=== PATIENT | female | born 1985 | race Caucasian/White ===

== ENCOUNTER → 2020-06-09 15:31 | Outpatient (BNVA) | payer OTHER, SELFPAY | PROVIDERS: Family Provider Internal Medicine; PCP Internal Medicine; Visit Provider Nurse Practitioner Family | DX: Z20.828 Contact with and (suspected) exposure to other viral communicable diseases (principal); J06.9 Acute upper respiratory infection, unspecified | CPT/HCPCS: 87635 ==

== ENCOUNTER 2020-08-03 14:38 | Emergency (ER) | payer SELFPAY ==
[2020-08-03 15:25] VITALS: BP 115/73; PULSE 97; RESP 14; TEMP 36.8; O2SAT 100; BMI 24.7
--- NOTE | 2020-08-03 16:36 | XRR_ITS ---
PROCEDURE INFORMATION: Exam: XR Chest, 1 View Exam date and time: 08/03/2020 4:38 PM Age: 34 years old Clinical indication: Shortness of breath; Additional info: SOB TECHNIQUE: Imaging protocol: XR of the chest Views: 1 view. Total images: 1 COMPARISON: CR Chest 2 views* [id number] 01/31/2018 3:11 PM FINDINGS: Lungs: Unremarkable. No consolidation. Pleural space: Unremarkable. No pleural effusion. No pneumothorax. Heart/Mediastinum: Unremarkable. No cardiomegaly. Bones/joints: Mild scoliotic curvature of the spine. XR/XR chest 1V portable [id number] IMPRESSION: Nonacute.
--- NOTE | 2020-08-03 16:50 | W.ED.SOB ---
Documented by User: JACKIE Davis 08/05/20 09:23 HPI - SOB/Dyspnea General: Chief Complaint: Shortness of Breath/Dyspnea Stated Complaint: SOB/ Weakness/fatigue Time Seen by Provider: 08/03/20 16:32 History of Present Illness: HPI Narrative: Patient is a 34-year-old female comes to the ED with cough and shortness of breath. Patient says she has been having the symptoms for over a month. She has been to the urgent care twice now and has been put on antibiotics and steroid. She says her cough has not went away and it gets worse at night when she lays down and that is also when she starts feeling short of breath. Currently here in the ED she is not really having any symptoms. Denies any nasal congestion or drainage,sore throat, fever, chills, nausea/vomiting, chest pain, abdominal pain, bladder or bowel symptoms. Associated symptoms: Deny abdominal pain, chest pain, fever(s), nausea, orthopnea, palpitations or vomiting Review of Systems Const: Denies: fever(s), chills or fatigue Eyes: Denies: change in vision or eye discomfort ENMT: Denies: throat pain, odynophagia, nasal discharge or nasal congestion Card: Denies: chest pain, palpitations, edema, swelling of feet/ankles, dyspnea on exertion or orthopnea Resp: Reports: dyspnea and non-productive cough; Denies: productive cough GI: Denies: abdominal pain, nausea, vomiting, diarrhea, constipation or hematochezia : Denies: flank pain, dysuria or hematuria Musc: Denies: neck pain, back pain or extremity swelling Skin/Breast: Denies: rash or new lesions Neuro: Denies: headache(s), numbness in extremities or weakness in extremities PFS ED PFSH: Family History Other Cancer Diabetes Heart disease Social History Smoking and tobacco status: current every day smoker Alcohol intake: current Alcohol intake frequency: holidays/special occasions only Adopted: No Marital status: Single Number of children: 2 service: No History of recent travel: No Physical Exam Const: COMMON NORMALS: no acute distress, patient oriented x3 and alert HENMT: COMMON NORMALS: normocephalic HEAD & SCALP: normocephalic MOUTH: Normal oral and palatal mucosa present THROAT: posterior oropharynx normal and uvula midline Neck/C-Spine: COMMON NORMALS: supple GENERAL: Yes normal visual inspection Resp: COMMON NORMALS: normal respiratory effort, No retractions, No use of accessory muscles and clear to auscultation bilaterally EFFORT & INSPECTION: Yes able to speak in complete sentences, No tachypneic, No respiratory distress and No labored AUSCULTATION: clear to auscultation bilaterally Cardio: COMMON NORMALS: regular rate, regular rhythm, S1 normal heart sound present, S2 normal heart sound present, No gallops present (Cardio), No clicks present (Cardio), No murmurs present (Cardio) and Peripheral pulses 2+ throughout RATE: regular rate RHYTHM: regular rhythm HEART SOUNDS: S1 normal heart sound present and S2 normal heart sound present PERIPHERAL PULSES: Peripheral pulses 2+ throughout GI: COMMON NORMALS: Normal to inspection, nondistended, normoactive bowel sounds present, Soft to palpation, non-tender and no masses PALPATION: Yes Soft to palpation : COMMON NORMALS: Yes no CVA tenderness BLADDER/KIDNEY EXAM: Yes no CVA tenderness Back/Pelvis: COMMON NORMALS: no CVA tenderness Extremity: COMMON NORMALS: normal to inspection Neuro: COMMON NORMALS: patient oriented x3 and moves all extremities SENSORIUM/ORIENTATION: Yes alert Skin: GENERAL SKIN EXAM: dry skin Course Vital Signs: Vital signs: Vital Signs Temperature 98.2 F 08/03/20 15:25 Pulse Rate 72 08/03/20 18:16 Respiratory Rate 18 08/03/20 18:16 Blood Pressure 112/78 08/03/20 18:16 Pulse Oximetry 98 08/03/20 18:16 Discharge Plan Discharge Patient Disposition: Home Clinical Impression: Suspected 2019 novel coronavirus infection Acute bronchitis Qualifiers: Bronchitis organism: unspecified organism Qualified Code(s): J20.9 - Acute bronchitis, unspecified Condition: Stable Prescriptions: New Decadron 6 mg tablet 6 mg PO DAILY Qty: 10 RF: 0 Ventolin HFA 90 mcg/actuation HFA aerosol inhaler 2 puff INHALATION Q4H PRN (Reason: shortness of breath or wheezing) Qty: 18 RF: 0 benzonatate 200 mg capsule 200 mg PO TID PRN (Reason: cough) Qty: 20 RF: 0 cefdinir 300 mg capsule 300 mg PO BID 10 Days Qty: 20 RF: 0 (DME) POCKET CHAMBER Spacer See Rx Instructions .ROUTE .MEDSUPPLY Qty: 1 RF: 0 Discontinued azithromycin 250 mg tablet See Rx Instructions PO .COMPLEX Qty: 6 RF: 0 prednisone 20 mg tablet 40 mg PO DAILY Qty: 10 RF: 0 No Action Mirena 20 mcg/24 hours (5 yrs) 52 mg intrauterine device INTRAUTERI RF: 0 desvenlafaxine 50 mg tablet extended release 24 hr 50 mg PO DAILY Qty: 30 RF: 5 Discharge Orders: Discharge ED (Routine); Ordered 08/03/20 Ordered By: Katherin Zaidi Referrals: Fred Rangel MD [Primary Care Provider] - Discharge Diet: Usual diet Discharge Activity: Limit activity as instructed Patient Instructions: Acute Bronchitis (ED), How to Use a Metered-Dose Inhaler with a Spacer (ED) Activity Restrictions/Additional Instructions: Covid swab results will be called to you in the next 24 to 48 hours; remain in quarantine, push fluids, may take Tylenol/ibuprofen as needed for pain. Take cefdinir until all gone, even if feeling better, return to the emergency department if you develop inability to catch her breath, difficulty breathing or other concerning symptoms If Covid results are positive; [facility] will contact you with further instructions. Take dexamethasone in the morning with food to avoid stomach upset. Sign Out Sign Out Data: Patient Sign Out occurred on 08/03/20 at 17:24. Patient's care was discussed, and care was transferred from to ZACH Benedict. Post-Handoff Eval: 34-year-old female patient presents to the emergency department with 1 to 2-week history of cough congestion. She reports cough improved with azithromycin and prednisone. When antibiotics were completed, return of symptoms worsen. Lungs are clear upon exam. She was provided prescription of dexamethasone, cefdinir, albuterol and benzonatate. Advised to take ibuprofen and Tylenol as needed for discomfort from the cough. Advised need for follow-up with her primary care provider as further studies may be needed such as pulmonary function test, chest x-ray revealed no acute abnormalities today. Oxygen saturation 100% on room air; she is not tachycardic, PE not likely, she denies chest pain with symptoms. Coding Level of Care Code ED Grounds Maintenance Manager for Chg Fwd Exam Comprehensive Documented by User: ZACH Benedict 08/03/20 21:07 HPI - SOB/Dyspnea General: Chief Complaint: Shortness of Breath/Dyspnea Stated Complaint: SOB/ Weakness/fatigue Time Seen by Provider: 08/03/20 16:32 PFSH ED PFSH: Family History Other Cancer Diabetes Heart disease Social History Smoking and tobacco status: current every day smoker Alcohol intake: current Alcohol intake frequency: holidays/special occasions only Adopted: No Marital status: Single Number of children: 2 service: No History of recent travel: No Course Vital Signs: Vital signs: Vital Signs Temperature 98.2 F 08/03/20 15:25 Pulse Rate 72 08/03/20 18:16 Respiratory Rate 18 08/03/20 18:16 Blood Pressure 112/78 08/03/20 18:16 Pulse Oximetry 98 08/03/20 18:16 MDM - SOB/Dyspnea Imaging Data^: CXR: Radiologist's impression: [address] [address] XRay Report Signed Patient: Mena Bowman Unit #: [id number] : 1985 Age/Sex: 34 / F ADM Date: 08/03/20 Loc: ER Room/Bed: Attending Dr: Ordering Provider/Ordering MD: Tapan Burden Date of Service: 08/03/20 Procedure(s): XR chest 1V portable [id number] Accession Number(s): [id number] Report Number: [id number] PROCEDURE INFORMATION: Exam: XR Chest, 1 View Exam date and time: 08/03/2020 4:38 PM Age: 34 years old Clinical indication: Shortness of breath; Additional info: SOB TECHNIQUE: Imaging protocol: XR of the chest Views: 1 view. Total images: 1 COMPARISON: CR Chest 2 views* [id number] 01/31/2018 3:11 PM FINDINGS: Lungs: Unremarkable. No consolidation. Pleural space: Unremarkable. No pleural effusion. No pneumothorax. Heart/Mediastinum: Unremarkable. No cardiomegaly. Bones/joints: Mild scoliotic curvature of the spine. XR/XR chest 1V portable [id number] IMPRESSION: Nonacute. Dictated By: Maciel Padilla Signed By: Maciel Padilla Signed Date/Time: 08/03/201735 DD/ 34 Discharge Plan Discharge Patient Disposition: Home Clinical Impression: Suspected 2019 novel coronavirus infection Acute bronchitis Qualifiers: Bronchitis organism: unspecified organism Qualified Code(s): J20.9 - Acute bronchitis, unspecified Condition: Stable Prescriptions: New Decadron 6 mg tablet 6 mg PO DAILY Qty: 10 RF: 0 Ventolin HFA 90 mcg/actuation HFA aerosol inhaler 2 puff INHALATION Q4H PRN (Reason: shortness of breath or wheezing) Qty: 18 RF: 0 benzonatate 200 mg capsule 200 mg PO TID PRN (Reason: cough) Qty: 20 RF: 0 cefdinir 300 mg capsule 300 mg PO BID 10 Days Qty: 20 RF: 0 (DME) POCKET CHAMBER Spacer See Rx Instructions .ROUTE .MEDSUPPLY Qty: 1 RF: 0 Discontinued azithromycin 250 mg tablet See Rx Instructions PO .COMPLEX Qty: 6 RF: 0 prednisone 20 mg tablet 40 mg PO DAILY Qty: 10 RF: 0 No Action Mirena 20 mcg/24 hours (5 yrs) 52 mg intrauterine device INTRAUTERI RF: 0 desvenlafaxine 50 mg tablet extended release 24 hr 50 mg PO DAILY Qty: 30 RF: 5 Discharge Orders: Discharge ED (Routine); Ordered 08/03/20 Ordered By: Katherin Zaidi Referrals: Fred Rangel MD [Primary Care Provider] - Discharge Diet: Usual diet Discharge Activity: Limit activity as instructed Patient Instructions: Acute Bronchitis (ED), How to Use a Metered-Dose Inhaler with a Spacer (ED) Activity Restrictions/Additional Instructions: Covid swab results will be called to you in the next 24 to 48 hours; remain in quarantine, push fluids, may take Tylenol/ibuprofen as needed for pain. Take cefdinir until all gone, even if feeling better, return to the emergency department if you develop inability to catch her breath, difficulty breathing or other concerning symptoms If Covid results are positive; [facility] department will contact you with further instructions. Take dexamethasone in the morning with food to avoid stomach upset. Sign Out Sign Out Data: Patient Sign Out occurred on 08/03/20 at 17:24. Patient's care was discussed, and care was transferred from to ZACH Benedict. Post-Handoff Eval: 34-year-old female patient presents to the emergency department with 1 to 2-week history of cough congestion. She reports cough improved with azithromycin and prednisone. When antibiotics were completed, return of symptoms worsen. Lungs are clear upon exam. She was provided prescription of dexamethasone, cefdinir, albuterol and benzonatate. Advised to take ibuprofen and Tylenol as needed for discomfort from the cough. Advised need for follow-up with her primary care provider as further studies may be needed such as pulmonary function test, chest x-ray revealed no acute abnormalities today. Oxygen saturation 100% on room air; she is not tachycardic, PE not likely, she denies chest pain with symptoms. Coding Level of Care Code ED Grounds Maintenance Manager for Pranav Turcios Exam Comprehensive
[2020-08-03 18:16] VITALS: BP 112/78; PULSE 72; RESP 18; O2SAT 98
== END 2020-08-03 18:17 | disposition home or self-care (01) ==
PROVIDERS: Emergency Provider Nurse Practitioner Family; PCP Internal Medicine
DX: J20.9 Acute bronchitis, unspecified (principal); Z20.828 Contact with and (suspected) exposure to other viral communicable diseases; F17.210 Nicotine dependence, cigarettes, uncomplicated
CPT/HCPCS: 12345; 71045; 87635; 99281; 99282

== ENCOUNTER 2020-11-30 12:30 | Observation (INO) | payer SELFPAY ==
[2020-11-30 12:31] VITALS: BP 111/77; PULSE 72; RESP 15; O2SAT 100; BMI 23.9
[2020-11-30] MEDS: diazePAM 5 mg Tablet 10 MG PO (13:08)
[2020-11-30] MEDS: dexamethasone 10 mg/mL INJ IVP (13:13)
--- NOTE | 2020-11-30 13:15 | ED_ITS ---
HPI - Back Pain/Injury General: Chief Complaint: Back Pain/Injury Stated Complaint: BACK PAIN Time Seen by Provider: 11/30/20 12:33 History of Present Illness: HPI Narrative: 35-year-old female who has been building some heavy tables for the past couple of weeks who is noticed a little bit of low back pain progressively getting worse over the past 2 weeks she has been able to tolerate it with just some [id number] medications however the past couple of days she has noticed an increase in her lower back pain. It was to the point that last night the pain was so severe she did not want to get out of bed to urinate so held her urine throughout the night. Today she tried to get up and shower she bent over to pull up her pants she felt a pop in her back and it dropped her to her knees when she was unable to get herself up. Patient laid there for over an hour and called her mother for help she did have to urinate and asked her mother to put a towel and/or trash bag underneath her so she could just basically wet herself however when she went to try to urinate she physically could not urinate or push it out and that it was very difficult for her to even tried to urinate. He has pain in her left hip and buttock that was there prior to her dropping to her knees and she does not feel it is traumatic from today's events. She feels like her lower extremity especially in the left is a little more altered sensation but denies any true numbness or tingling she denies any saddle paresthesias she denies any bowel changes but she has not had a bowel movement today but it has been harder to defecate She has no previous back problems or injuries Review of Systems Narrative: General: denies fatigue, fever or chills HEENT: denies ear pain, denies nasal congestion, denies vision changes, denies sore throat Neck: denies masses or pain Resp: denies cough, denies shortness of breath, denies pleuritic pain Cardio: denies chest pain, denies edema GI: denies abdominal pain, denies N/V/D, denies black/tarry or bloody stools : denies hematuria, denies dysuria Neuro: denies headache, denies dizziness, denies motor or sensory changes, changes in bladder habits and more difficult Musculoskeletal: + low back pain, left lower back and hip pain Skin: denies rashes Psych: denies SI or HI Endocrine: denies thyroid symptoms, denies lymphadenopathy all over ROS reviewed and patient denies PFSH ED PFSH: Family History Other Cancer Diabetes Heart disease Social History Smoking and tobacco status: current every day smoker Alcohol intake: current Alcohol intake frequency: holidays/special occasions only Adopted: No Marital status: Single Number of children: 2 service: No History of recent travel: No Physical Exam Narrative: EXAM NARRATIVE: General: a/o/3, no distress Head: atraumatic HEENT: normal eyes, normal conjunctiva, normal hearing, normal external nose, normal mouth, mucous membranes moist Neck: FROM, trachea midline Chest: normal expansion, no gross deformities Resp: normal speech, no retractions, no accessory muscle use, CTA bilaterally Cardio: regular rate and rhythm and no murmur, no peripheral edema, normal peripheral pulses GI: soft, flat non tender, no guarding normal BS : deferred Musculoskeletal: Lower midline back pain, difficulty rolling causes severe pain, no pain or gross deformities, negative straight leg raising, babinkski neg. hallux normal bilaterally, sensation intact b/l LE Neuro: a/o appropriate for age, no gross motor or sensory deficits, CN II-XII grossly intact, normal coordination, normal speech Skin: no rashes Psych: cooperative, normal mood and effect Course Vital Signs: Vital signs: Vital Signs Pulse Rate 72 11/30/20 12:31 Respiratory Rate 15 11/30/20 12:31 Blood Pressure 111/77 11/30/20 12:31 Pulse Oximetry 100 11/30/20 12:31 MDM - Back Pain/Injury MDM Narrative: Medical decision making narrative: Patient has not had previous back pains this has been an acute onset over the past 1 to 2 weeks with severe issues today that when she bent over she felt a pop and she could not even get her pants up and now she is having urinary incontinence and difficulty urinating to the point the patient even requested a catheter prior to her going to MRI because she does not feel that she can physically strain to get it to come out patient cannot sit up she cannot rollover this is an acute process with urinary changes I feel an MRI is warranted to rule out neurological changes cauda equina. MRI shows a L4-L5 disc protrusion. Mother is present discussed the findings with Dr. Ya who is on for spinal surgery he reviewed the images we are going to put her on some prednisone a tapering dose and pain medication he said he could see her in the office on Tuesday they can discuss a plan he does not feel she needs emergency surgery at this time and that hopefully she can improve with any type of injections or physical therapy. Lab Data: Labs: Lab Results 11/30/20 11/30/20 Range/Units 12:06 12:06 WBC 5.8 (4.0-10.0) 10^3/ uL RBC 4.50 (4.1-5.3) 10^6/u L Hgb 13.3 (11.5-15.3) g/dL Hct 39.7 (37.0-47.0) % MCV 88.2 (81-99) fL MCH 29.6 (28.0-34.0) pg MCHC 33.5 (30.0-36.0) g/dL RDW 11.6 L (12.1-15.1) % Plt Count 156 (130-400) 10^3/c mm MPV 12.1 H (7.4-10.4) fL Neut % (Auto) 65.0 % Lymph % (Auto) 26.8 % [place] % (Auto) 4.3 % Eos % (Auto) 2.8 % Baso % (Auto) 0.9 % Neut # (Auto) 3.77 (1.8-7.7) 10^3/u L Lymph # (Auto) 1.6 (0.8-4.8) 10^3/u L [place] # (Auto) 0.3 (0.2-0.9) 10^3/u L Eos # (Auto) 0.2 (0.0-0.8) 10^3/u L Baso # (Auto) 0.1 (0.0-0.1) 10^3/u L Nucleated RBC % (a uto) 0 % Nucleated RBCs # 0.0 /100WBC Sodium 140 (136-145) mmol/L Potassium 3.5 (3.5-5.1) mmol/L Chloride 106 (98-107) mmol/L Carbon Dioxide 24 (22-29) mmol/L Anion Gap 13.5 (5-19) BUN 10 (6-20) mg/dL Creatinine 0.5 (0.5-0.9) mg/dL GFR Calculation 140.4 H (90-130) mL/min Glucose 91 (65-115) mg/dL Calculated Osmolal ity 289 (285-295) mOsm/k g Calcium 9.0 (8.5-10.5) mg/dL Total Bilirubin 0.4 (0.15-1.2) mg/dL AST 12 (0-32) U/L ALT 7 (0-33) U/L Alkaline Phosphata se 45 (35-105) IU/L Total Protein 7.6 (6.6-8.7) g/dL Albumin 4.8 (3.5-5.2) g/dL Globulin 2.8 (1.3-4.6) g/dL Discharge Plan Discharge Condition: Stable Prescriptions: New prednisone 20 mg tablet 20 mg PO DAILY Qty: 15 RF: 0 hydrocodone-acetaminophen 7.5-325 mg tablet 1 tab PO Q6H PRN (Reason: pain) Qty: 20 RF: 0 tizanidine [Zanaflex] 4 mg capsule 4 mg PO TID PRN (Reason: muscle spasticity) Qty: 15 RF: 0 No Action Mirena 20 mcg/24 hours (5 yrs) 52 mg intrauterine device See Rx Instructions .ROUTE .COMPLEX RF: 0 albuterol sulfate [Ventolin HFA] 90 mcg/actuation HFA aerosol inhaler 2 puff INHALATION Q4H PRN (Reason: shortness of breath or wheezing) Qty: 18 RF: 0 (DME) POCKET CHAMBER Spacer See Rx Instructions .ROUTE .MEDSUPPLY Qty: 1 RF: 0 Ultram 50 mg Tablet 100 mg PO PRN RF: 0 Aleve 220 mg Tablet 440 mg PO PRN RF: 0 desvenlafaxine 50 mg tablet extended release 24 hr 50 mg PO QAM RF: 0 Discharge Orders: Discharge ED (Routine); Ordered 11/30/20 Ordered By: Suki Avila Referrals: Ariel Ya DO [Physician] - (bulging disc, seen in ER. ) Fred Rangel MD [Primary Care Provider] - Discharge Diet: Usual diet Discharge Activity: Increase activity as tolerated Patient Instructions: Lumbar Disc Herniation (ED), Lumbar Radiculopathy (ED) Activity Restrictions/Additional Instructions: Activity as tolerated you may need help or assistance and can try a walker if that helps to get around a little bit better. Make sure you are urinating regularly return if you have numbness or tingling between your legs or if you have worsening of symptoms or numbness down your leg. You need to call Dr. Ya on Tuesday tell them we spoke to mother the emergency department and he would like to see you in the office on Tuesday You may really try ibuprofen and/or Aleve for the inflammation and only use the pain medication when severely needed or the muscle relaxers. Thank you for choosing [facility] for your healthcare needs today. Please realize this is an emergency room and that we are providing you with a medical screening exam and this may not be complete and all inclusive of all the testing and or work up that you may need to determine your ailment or severity of your illness. It is very important that you follow up as instructed or that you return to the Emergency Department should you have concerns or if your condition changes or worsens in any way. Coding Level of Care Code ED Logger All Round for Pranav Turcios
[2020-11-30] MEDS: HYDROmorphone 1 mg/mL INJ 1 mL IVP (13:45)
--- NOTE | 2020-11-30 14:00 | MRR_ITS ---
PROCEDURE INFORMATION: Exam: MR Lumbar Spine Without Contrast Exam date and time: 11/30/2020 2:04 PM Age: 35 years old Clinical indication: Low back pain; Patient HX: Patient bent over yesterday, low back popped and patient has been unable to ambulate, has urinary difficulty and incontinence. ; Additional info: Sudden low back pain, urinary difficulty, incontinence TECHNIQUE: Imaging protocol: Multiplanar magnetic resonance images of the lumbar spine without intravenous contrast. COMPARISON: No relevant prior studies available. FINDINGS: Vertebrae: Unremarkable. Spinal cord: Normal signal. No cord compression. C6-C7: Sagittal images show minimal disc bulge lying close to the cervical spinal cord. Consider follow-up cervical spine MRI if indicated. L1-L2: No significant disc disease. No significant spinal canal stenosis. No neural foraminal stenosis. L2-L3: No significant disc disease. No significant spinal canal stenosis. No neural foraminal stenosis. L3-L4: No significant disc disease. No significant spinal canal stenosis. No neural foraminal stenosis. L4-L5: Small central disc protrusion, no nerve root displacement. L5-S1: No significant disc disease. No significant spinal canal stenosis. No neural foraminal stenosis. Soft tissues: Unremarkable. MR/MR lumbar spine wo con* [id number] IMPRESSION: Small L4-L5 disc protrusion.
[2020-11-30] MEDS: sodium chloride 0.9% 1,000 ML 999 ML IV (15:14)
[2020-11-30 15:25] LABS: Basophils # 0.1 10^3/uL (0.0-0.1); Basophils % 0.9 %; Eosinophils # 0.2 10^3/uL (0.0-0.8); Eosinophils % 2.8 %; Hematocrit 39.7 % (37.0-47.0); Hemoglobin 13.3 g/dL (11.5-15.3); Lymphocytes # 1.6 10^3/uL (0.8-4.8); Lymphocytes % 26.8 %; Mean Corpuscular HGB Conc 33.5 g/dL (30.0-36.0); Mean Corpuscular Hemoglobin 29.6 pg (28.0-34.0); Mean Corpuscular Volume 88.2 fL (81-99); Mean Platelet Volume 12.1 fL (7.4-10.4); Monocytes # 0.3 10^3/uL (0.2-0.9); Monocytes % 4.3 %; Neutrophils # 3.77 10^3/uL (1.8-7.7); Nucleated Red Blood Cells % 0 %; Platelet Count 156 10^3/cmm (130-400); Red Cell Distribution Width 11.6 % (12.1-15.1); White Blood Count 5.8 10^3/uL (4.0-10.0)
[2020-11-30 15:34] LABS: Alanine Aminotransferase 7 U/L (0-33); Albumin Level 4.8 g/dL (3.5-5.2); Alkaline Phosphatase 45 IU/L (35-105); Anion Gap 13.5 (5-19); Aspartate Amino Transferase 12 U/L (0-32); Blood Urea Nitrogen 10 mg/dL (6-20); Carbon Dioxide 24 mmol/L (22-29); Chloride 106 mmol/L (98-107); Creatinine Clr Calc Pharmacy 138.6697; Globulin 2.8 g/dL (1.3-4.6); Glomerular Filtration Rate 140.4 mL/min (90-130); Glucose 91 mg/dL (65-115); Osmolality Calculated 289 mOsm/kg (285-295); Potassium 3.5 mmol/L (3.5-5.1); Sodium 140 mmol/L (136-145); Total Bilirubin 0.4 mg/dL (0.15-1.2); Total Protein 7.6 g/dL (6.6-8.7)
[2020-11-30] MEDS: HYDROcodone-acetaminophen 7.5-325 mg Tablet 1 TAB PO (17:19)
--- NOTE | 2020-11-30 18:49 | PM.HP ---
Providers/Chief Complaint Primary Care Provider: Fred Rangel MD Chief Complaint: BACK PAIN History of Present Illness Mena Bowman is a 35 year old female with no significant past medical history who has been building some heavy tables for the past couple of weeks who is noticed a little bit of low back pain progressively getting worse over the past 2 weeks she has been able to tolerate it with just some [id number] medications however the past couple of days she has noticed an increase in her lower back pain. It was to the point that last night the pain was so severe she did not want to get out of bed to urinate so held her urine throughout the night. Today she tried to get up and shower she bent over to pull up her pants she felt a pop in her back and it dropped her to her knees when she was unable to get herself up. Patient laid there for over an hour and called her mother for help she did have to urinate and asked her mother to put a towel and/or trash bag underneath her so she could just basically wet herself however when she went to try to urinate she physically could not urinate or push it out and that it was very difficult for her to even tried to urinate. She has pain in her left hip and buttock that was there prior to her dropping to her knees and she does not feel it is traumatic from today's events. She feels like her lower extremity especially in the left is a little more altered sensation but denies any true numbness or tingling she denies any saddle paresthesias she denies any bowel changes but she has not had a bowel movement today but it has been harder to defecate. Denies any previous injuries. Review of Systems General: Reports: 10 or more systems reviewed and unremarkable except in HPI and below Const: Denies: fever(s), chills, body aches, change in appetite, change in weight, malaise, night sweats, diaphoresis, change in sleep pattern, daytime sleepiness or snoring Eyes: Denies: change in vision, blurry vision, photophobia, eye discomfort or eye discharge ENMT: Denies: throat pain, enlarged tonsils, hoarseness, mouth pain, oral sores, dry mouth, tinnitus, nasal congestion or post nasal drip Card: Denies: chest pain, palpitations, irregular heart rhythm, edema, swelling of feet/ankles, lightheadedness, syncope, pre-syncope, dyspnea on exertion, orthopnea, leg pain with exertion or acrocyanosis Resp: Denies: dyspnea, productive cough, non-productive cough, wheezing, stridor, pain on inspiration, change in phlegm color, hemoptysis or chest congestion GI: Denies: abdominal pain, nausea, vomiting, hematemesis, coffee ground emesis, dysphagia, heartburn, diarrhea, constipation, bloating, GI cramping, change in bowel habits, pain on defecation, hematochezia or melena : Denies: flank pain, dysuria, urinary frequency, urinary urgency, urinary hesitancy, nocturia or hematuria Musc: Denies: neck pain, back pain, extremity pain, joint pain, joint swelling, joint redness, joint stiffness or limited range of motion Neuro: Denies: headache(s), numbness in extremities, weakness in extremities, sensory changes, lack of coordination, difficulty walking, frequent falls, dizziness, vertigo, confusion, Slurred speech present, difficulty communicating thoughts or seizure-like activity Psych: Denies: anxiety, depression, mood swings, panic attacks, hopelessness or irritability Endo: Denies: polyuria, polydipsia, tired all the time, cold intolerance, excessive sweating, flushing or heat intolerance Norman/Lymph: Denies: easy bruising or easy bleeding All/Imm: Denies: tongue swelling, facial swelling or acute wheezing Medications/Allergies Home Medications Medication Instructions Recorded Confirmed Last Taken Type levonorgestrel 20 mcg/24 hours (6 See Rx Instructions .ROUTE .COMPLEX 04/02/20 11/30/20 Unknown History yrs) 52 mg intrauterine device albuterol sulfate [Ventolin HFA] 2 puff INHALATION Q4H PRN #18 g 08/03/20 11/30/20 Unknown Rx inhalational spacing device #1 ea 08/03/20 11/30/20 Unknown Rx [POCKET CHAMBER] desvenlafaxine 50 mg PO QAM 11/30/20 11/30/20 11/30/20 11:00 History hydrocodone-acetaminophen 1 tab PO Q6H PRN #20 tab 11/30/20 Unknown Rx naproxen sodium [Aleve] 440 mg PO PRN 11/30/20 11/30/20 11/29/20 History prednisone 20 mg PO DAILY #15 tab 11/30/20 Unknown Rx tizanidine [Zanaflex] 4 mg PO TID PRN #15 cap 11/30/20 Unknown Rx tramadol [Ultram] 100 mg PO PRN 11/30/20 11/30/20 11/30/20 06:30 History Allergies Allergy/AdvReac Type Severity Reaction Status Date / Time Penicillins Allergy ALGY-Swell Verified 11/30/20 13:10 Lip/Tongue/Throat Sulfa (Sulfonamide Allergy ALGY-Anaphy Verified 11/30/20 13:10 Antibiotics) laxis tetracycline Allergy Unknown Verified 11/30/20 13:10 PFSH Acute PFSH: Medical History (Updated 11/30/20 @ 18:55 by Gerry Jalloh MD) Anxiety Surgical History (Updated 11/30/20 @ 18:55 by Gerry Jalloh MD) History of appendectomy Family History Other Cancer Diabetes Heart disease Social History Smoking and tobacco status: current every day smoker Alcohol intake: current Alcohol intake frequency: holidays/special occasions only Adopted: No Marital status: Single Number of children: 2 service: No History of recent travel: No Vitals/I&O/Wt Last Vital Signs Pulse 72 11/30/20 12:31 Resp 15 11/30/20 12:31 BP 111/77 11/30/20 12:31 Pulse Ox 100 11/30/20 12:31 Weight last 48 hrs Weight 61.235 kg Physical Exam Narrative: EXAM NARRATIVE: General: No acute distress, AO x3 HEENT: PERRLA, pupils bilaterally equal and reactive Chest: Normal vesicular breath sounds, no added sounds, equal good air entry bilaterally CVS: S1-S2 regular, no murmurs, no tachycardia, no gallops, no rubs Abdomen: Soft, nontender, no organomegaly, bowel sounds present Neuro: No focal deficits, no facial deformity, AO x3, power 5/5 in all limbs, Extremity: COMMON NORMALS: normal to inspection NARRATIVE EXTREMITY EXAM: Bilateral legs limited movement because of pain in the hips and back, straight leg test positive for pain in back, power 5 x 5 in dorsiflexion, bilateral 3/5 in upper movement, no restriction of movement at knee joint, capillary refill bilateral normal, bilateral pulses palpable RIGHT LOWER EXTREMITY: Yes lower leg Neuro: COMMON NORMALS: patient oriented x3 and moves all extremities MOTOR EXAM: 5/5 motor strength present throughout Urinary Catheter Management^: Yanes: Cath Placed During This Visit: yes Urinary Catheter Date of Insertion: 11/30/20 Urinary Catheter Time of Insertion: 13:37 Data : 11/30/20 12:06 11/30/20 12:06 Other Labs: Laboratory Results WBC 5.8 10^3/uL (4.0-10.0) 11/30/20 12:06 RBC 4.50 10^6/uL (4.1-5.3) 11/30/20 12:06 Hgb 13.3 g/dL (11.5-15.3) 11/30/20 12:06 Hct 39.7 % (37.0-47.0) 11/30/20 12:06 MCV 88.2 fL (81-99) 11/30/20 12:06 MCH 29.6 pg (28.0-34.0) 11/30/20 12:06 MCHC 33.5 g/dL (30.0-36.0) 11/30/20 12:06 RDW 11.6 % (12.1-15.1) L 11/30/20 12:06 Plt Count 156 10^3/cmm (130-400) 11/30/20 12:06 MPV 12.1 fL (7.4-10.4) H 11/30/20 12:06 Neut % (Auto) 65.0 % 11/30/20 12:06 Lymph % (Auto) 26.8 % 11/30/20 12:06 [place] % (Auto) 4.3 % 11/30/20 12:06 Eos % (Auto) 2.8 % 11/30/20 12:06 Baso % (Auto) 0.9 % 11/30/20 12:06 Neut # (Auto) 3.77 10^3/uL (1.8-7.7) 11/30/20 12:06 Lymph # (Auto) 1.6 10^3/uL (0.8-4.8) 11/30/20 12:06 [place] # (Auto) 0.3 10^3/uL (0.2-0.9) 11/30/20 12:06 Eos # (Auto) 0.2 10^3/uL (0.0-0.8) 11/30/20 12:06 Baso # (Auto) 0.1 10^3/uL (0.0-0.1) 11/30/20 12:06 Nucleated RBC % (auto) 0 % 11/30/20 12:06 Nucleated RBCs # 0.0 /100WBC 11/30/20 12:06 Sodium 140 mmol/L (136-145) 11/30/20 12:06 Potassium 3.5 mmol/L (3.5-5.1) 11/30/20 12:06 Chloride 106 mmol/L (98-107) 11/30/20 12:06 Carbon Dioxide 24 mmol/L (22-29) 11/30/20 12:06 Anion Gap 13.5 (5-19) 11/30/20 12:06 BUN 10 mg/dL (6-20) 11/30/20 12:06 Creatinine 0.5 mg/dL (0.5-0.9) 11/30/20 12:06 GFR Calculation 140.4 mL/min (90-130) H 11/30/20 12:06 Glucose 91 mg/dL (65-115) 11/30/20 12:06 Calculated Osmolality 289 mOsm/kg (285-295) 11/30/20 12:06 Calcium 9.0 mg/dL (8.5-10.5) 11/30/20 12:06 Total Bilirubin 0.4 mg/dL (0.15-1.2) 11/30/20 12:06 AST 12 U/L (0-32) 11/30/20 12:06 ALT 7 U/L (0-33) 11/30/20 12:06 Alkaline Phosphatase 45 IU/L (35-105) 11/30/20 12:06 Total Protein 7.6 g/dL (6.6-8.7) 11/30/20 12:06 Albumin 4.8 g/dL (3.5-5.2) 11/30/20 12:06 Globulin 2.8 g/dL (1.3-4.6) 11/30/20 12:06 Impressions Lumbar Spine MRI 11/30/20 14:00 IMPRESSION: Small L4-L5 disc protrusion. A&P Assessment and plan (1) Back pain: Status: Acute (2) Intervertebral disc protrusion: Status: Acute Additional A&P Information Back pain due to intervertebral disc protrusion: MRI in the ER done. No nerve involvement. Dr. Ya has been consulted from the ER. Physical therapy. Solu-Medrol 40 every 6. Fentanyl patch. Dilaudid 0.5 every 6 hours as needed. Tizanidine 2 mg oral every 8 hours as needed. Continue other chronic medications. Full code. Low probability for DVT so no prophylaxis. Early ambulation. Regular diet. Famotidine for PUD prophylaxis. Admit under observation. Discharge planning: Patient lives by herself. Has 5 stairs to climb into the house. Most likely will require home health and outpatient physical therapy. Attestations Medical Necessity Statement*: Anticipate admission for less than 2 midnights for back pain due to intervertebral disc protrusion. Time Spent in Patient Care: Greater than 35 minutes (>than 50% of time spent in counselling and/or direct pt care on unit). Coding Level of Care Code Acute Contact Lens Blocker And Cutter for Billieg Fwd Diagnoses Back pain M54.9 Intervertebral disc protrusion
[2020-11-30] MEDS: fentaNYL 50 mcg Patch 1 PATCH TRANSDERMA (19:54)
[2020-11-30 20:00] VITALS: BP 110/69; BP 115/67; PULSE 80; PULSE 81; RESP 17; TEMP 36.9; O2SAT 95; O2SAT 99
[2020-11-30] MEDS: tizanidine 4 mg Tablet 2 MG PO (20:08)
[2020-11-30 22:26] LABS: Iron 86 ug/dL (37-145); Percent Saturation 28.5 % (20-50); Total Iron Binding Capacity 301 mcg/dl; Unsaturated Iron Binding 215 ug/dL (112-347)
[2020-11-30 23:18] VITALS: PULSE 78; RESP 16; O2SAT 96
[2020-12-01] VITALS (8 sets, daily range): BP systolic 98–122; BP diastolic 58–79; PULSE 68–87; RESP 17–20; TEMP 36.4–37.4; O2SAT 95–97
[2020-12-01 05:35] LABS: Hematocrit 34.7 % (37.0-47.0); Hemoglobin 11.6 g/dL (11.5-15.3); Lymphocytes # 0.4 10^3/uL (0.8-4.8); Lymphocytes % 6.2 %; Mean Corpuscular HGB Conc 33.4 g/dL (30.0-36.0); Mean Corpuscular Hemoglobin 29.4 pg (28.0-34.0); Mean Corpuscular Volume 88.1 fL (81-99); Mean Platelet Volume 11.8 fL (7.4-10.4); Monocytes % 0.6 %; Neutrophils # 5.87 10^3/uL (1.8-7.7); Neutrophils % 92.7 %; Nucleated Red Blood Cells % 0 %; Platelet Count 158 10^3/cmm (130-400); Red Blood Count 3.94 10^6/uL (4.1-5.3); Red Cell Distribution Width 11.5 % (12.1-15.1); White Blood Count 6.3 10^3/uL (4.0-10.0)
[2020-12-01 05:50] LABS: Alanine Aminotransferase 7 U/L (0-33); Albumin Level 4.1 g/dL (3.5-5.2); Alkaline Phosphatase 38 IU/L (35-105); Aspartate Amino Transferase 9 U/L (0-32); Blood Urea Nitrogen 10 mg/dL (6-20); Calcium 8.4 mg/dL (8.5-10.5); Carbon Dioxide 21 mmol/L (22-29); Chloride 106 mmol/L (98-107); Globulin 2.5 g/dL (1.3-4.6); Glomerular Filtration Rate 181.6 mL/min (90-130); Glucose 138 mg/dL (65-115); Osmolality Calculated 281 mOsm/kg (285-295); Sodium 135 mmol/L (136-145); Total Bilirubin 0.3 mg/dL (0.15-1.2); Total Protein 6.6 g/dL (6.6-8.7)
--- NOTE | 2020-12-01 07:11 | PM.CONSULT ---
Providers/Reason For Consult Consulting Physican/Specialty*: hospitalist Reason for Consult*: back pain Attending Physician: Gerry Jalloh MD Primary Care Provider: Fred Rangel MD History of Present Illness History of Present Illness Mena Bowman is a 35 year old female has been building some heavy tables for the past couple of weeks who is noticed a little bit of low back pain progressively getting worse over the past 2 weeks she has been able to tolerate it with just some [id number] medications however the past couple of days she has noticed an increase in her lower back pain. It was to the point that last night the pain was so severe she did not want to get out of bed to urinate so held her urine throughout the night. Today she tried to get up and shower she bent over to pull up her pants she felt a pop in her back and it dropped her to her knees when she was unable to get herself up. Patient laid there for over an hour and called her mother for help she did have to urinate and asked her mother to put a towel and/or trash bag underneath her so she could just basically wet herself however when she went to try to urinate she physically could not urinate or push it out and that it was very difficult for her to even tried to urinate. She has pain in her left hip and buttock that was there prior to her dropping to her knees and she does not feel it is traumatic from today's events. She feels like her lower extremity especially in the left is a little more altered sensation but denies any true numbness or tingling she denies any saddle paresthesias she denies any bowel changes but she has not had a bowel movement today but it has been harder to defecate. Denies any previous injuries. Review of Systems General: Reports: 10 or more systems reviewed and unremarkable except in HPI and below Narrative: General: denies fatigue, fever or chills HEENT: denies ear pain, denies nasal congestion, denies vision changes, denies sore throat Neck: denies masses or pain Resp: denies cough, denies shortness of breath, denies pleuritic pain Cardio: denies chest pain, denies edema GI: denies abdominal pain, denies N/V/D, denies black/tarry or bloody stools : denies hematuria, denies dysuria Neuro: denies headache, denies dizziness, denies motor or sensory changes, changes in bladder habits and more difficult Musculoskeletal: + low back pain, left lower back and hip pain Skin: denies rashes Psych: denies SI or HI Endocrine: denies thyroid symptoms, denies lymphadenopathy all over ROS reviewed and patient denies Const: Denies: fever(s), chills, body aches, change in appetite, change in weight, malaise, night sweats, diaphoresis, change in sleep pattern, daytime sleepiness or snoring Eyes: Denies: change in vision, blurry vision, photophobia, eye discomfort or eye discharge ENMT: Denies: throat pain, enlarged tonsils, hoarseness, mouth pain, oral sores, dry mouth, tinnitus, nasal congestion or post nasal drip Card: Denies: chest pain, palpitations, irregular heart rhythm, edema, swelling of feet/ankles, lightheadedness, syncope, pre-syncope, dyspnea on exertion, orthopnea, leg pain with exertion or acrocyanosis Resp: Denies: dyspnea, productive cough, non-productive cough, wheezing, stridor, pain on inspiration, change in phlegm color, hemoptysis or chest congestion GI: Denies: abdominal pain, nausea, vomiting, hematemesis, coffee ground emesis, dysphagia, heartburn, diarrhea, constipation, bloating, GI cramping, change in bowel habits, pain on defecation, hematochezia or melena : Denies: flank pain, dysuria, urinary frequency, urinary urgency, urinary hesitancy, nocturia or hematuria Musc: Denies: neck pain, back pain, extremity pain, joint pain, joint swelling, joint redness, joint stiffness or limited range of motion Neuro: Denies: headache(s), numbness in extremities, weakness in extremities, sensory changes, lack of coordination, difficulty walking, frequent falls, dizziness, vertigo, confusion, Slurred speech present, difficulty communicating thoughts or seizure-like activity Psych: Denies: anxiety, depression, mood swings, panic attacks, hopelessness or irritability Endo: Denies: polyuria, polydipsia, tired all the time, cold intolerance, excessive sweating, flushing or heat intolerance Norman/Lymph: Denies: easy bruising or easy bleeding All/Imm: Denies: tongue swelling, facial swelling or acute wheezing Meds/Allergies Home Medications and Allergies Home Medications Medication Instructions Recorded Confirmed Last Taken Type levonorgestrel 20 mcg/24 hours (6 See Rx Instructions .ROUTE .COMPLEX 04/02/20 11/30/20 Unknown History yrs) 52 mg intrauterine device albuterol sulfate [Ventolin HFA] 2 puff INHALATION Q4H PRN #18 g 08/03/20 11/30/20 Unknown Rx inhalational spacing device #1 ea 08/03/20 11/30/20 Unknown Rx [POCKET CHAMBER] desvenlafaxine 50 mg PO QAM 11/30/20 11/30/20 11/30/20 11:00 History hydrocodone-acetaminophen 1 tab PO Q6H PRN #20 tab 11/30/20 Unknown Rx naproxen sodium [Aleve] 440 mg PO PRN 11/30/20 11/30/20 11/29/20 History prednisone 20 mg PO DAILY #15 tab 11/30/20 Unknown Rx tizanidine [Zanaflex] 4 mg PO TID PRN #15 cap 11/30/20 Unknown Rx tramadol [Ultram] 100 mg PO PRN 11/30/20 11/30/20 11/30/20 06:30 History Allergies Allergy/AdvReac Type Severity Reaction Status Date / Time Penicillins Allergy ALGY-Swell Verified 11/30/20 13:10 Lip/Tongue/Throat Sulfa (Sulfonamide Allergy ALGY-Anaphy Verified 11/30/20 13:10 Antibiotics) laxis tetracycline Allergy Unknown Verified 11/30/20 13:10 Current Medications Current Medications Generic Name Dose Route Start Last Admin Trade Name Freq PRN Reason Stop Dose Admin Fentanyl 1 patch 11/30/20 19:00 11/30/20 19:54 Fentanyl 50 Mcg Patch TRANSDERMA 1 patch Q72H RITESH Administration Methylprednisolone Sodium Succinate 40 mg 11/30/20 19:00 12/01/20 02:24 Methylprednisolone Sod Succ 40 Mg/Ml Inj IVP 40 mg Q6H RITESH Administration Tizanidine HCl 2 mg 11/30/20 19:43 11/30/20 20:08 Tizanidine 4 Mg Tablet PO 2 mg TID PRN Administration SPASMS PFSH Acute PFSH: Medical History (Updated 11/30/20 @ 18:55 by Gerry Jalloh MD) Anxiety Surgical History (Updated 11/30/20 @ 18:55 by Gerry Jalloh MD) History of appendectomy Family History Other Cancer Diabetes Heart disease Social History Smoking and tobacco status: current every day smoker Alcohol intake: current Alcohol intake frequency: holidays/special occasions only Adopted: No Marital status: Single Number of children: 2 service: No History of recent travel: No Vitals/I&O/Wt Last Vital Signs Temp 99.4 F 12/01/20 04:00 Pulse 81 12/01/20 04:00 Resp 20 H 12/01/20 04:00 BP 98/59 12/01/20 04:00 Pulse Ox 97 12/01/20 04:00 11/30/20 12/01/20 12/01/20 22:59 06:59 14:59 Intake Total 1000 / 1000 Output Total 550 / 550 Balance 1000 / 1000 -550 / 450 Weight last 48 hrs Weight 141 lb 14.4 oz Weight 135 lb Physical Exam Narrative: EXAM NARRATIVE: CONSTITUTIONAL: The patient is a normal appearing [] in no apparent distress. GENERAL: Patient in no acute distress. CARDIAC: Regular rate and rhythm. CHEST: Normal inspiratory effort, normal respiratory rate. ABDOMEN: Soft and nontender. SKIN: Clear, warm and intact. NEURO?PSYCH: The patient is alert and oriented to person, place and time. Sensorv /SILT Motor StrengthShoulder abduction C5 5/5Wrist extension C6 5/5Elbow extension C7 5/5Hand Metal Bumper C8 5/5Finger abduction T15/5 Radial/ Ulnar/ Median n intact LowerSensory (SILT)Motor StrengthHin flexion L2/3Ant/inner thigh 5/5Hip adduction L2/3 5/5Knee extension L4 Lat thigh, 5/5Toe dorsiflexion L5 5/5Ankle dorsiflexion L5/ P14Zmuzlps flexion S1 5/5 DTRBleeps 2+Triceps 2+Brachioradialis 2+Patellar 2+Achilles 2+ MUSCULOSKELETAL: [] UPPEREXTREMITIES: The patient had full active ROM in fingers, wrist, elbow, and shoulder. The patient demonstrated ability to fully flex/extend/abduct/adduct fingers, make ok sign, cross 2nd/3rd digits, extend 1st digit fully.. Radial pulse 2+, CR<2 seconds. LOWER EXTREMITIES: Pt has full, active ROM of toes, ankle, knee, and hip. Dorsalis pedis/posterior tibialis pulses 2+, CR<2 seconds. SPINE: Skin warm, dry, intact. Urinary Catheter Management^: Yanes: Cath Placed During This Visit: yes Reason for Continuing Indwelling Catheter: Acute Urinary Retention or Obstruction Urinary Catheter Date of Insertion: 11/30/20 Urinary Catheter Time of Insertion: 13:37 A&P Assessment and plan (1) Intervertebral disc protrusion: Patient does have stenosis at L4-5. At this point I would like to see if she gets better taking steroids. I did discuss with her the option of doing a steroid injection outpatient. However patient was concerned about the cost. At this point patient feels like she is getting somewhat better. We will reevaluate in the morning. Or at the end the day today. Status: Acute Consult Attestations Medical Necessity Statement: pain control Coding Level of Care Code Acute Volunteer Services Specialist for Pranav Turcios Diagnoses Intervertebral disc protrusion
[2020-12-01 07:49] LABS: HCG Qualitative Urine. Negative (Negative)
[2020-12-01] MEDS: tizanidine 4 mg Tablet 2 MG PO ×2 (09:12→19:47)
[2020-12-01] MEDS: famotidine 20 mg Tablet PO ×2 (09:12→16:34)
--- NOTE | 2020-12-01 09:44 | PC.RESP ---
SMOKING CESSATION INFORMATION SENT TO PATIENT.
--- NOTE | 2020-12-01 10:22 | DCPLANNER ---
Per rounding - pt will be re-evaluated, will likely remain obs and be d/c'd on 12/02.
--- NOTE | 2020-12-01 13:46 | PC.NURSE ---
Dr Martinez notified that vape was taken from patient's room.
--- NOTE | 2020-12-01 14:47 | PC.NURSE ---
patient states she thinks she is getting a UTI. Notified Dr Perrin of patient's concern
[2020-12-01 16:14] LABS: Bilirubin Urine Neg (Negative); Blood Urine 3+ (Negative); Glucose Urine UA 1+ (Normal); Ketones Urine Negative (Negative); Nitrate Urine Negative (Negative); Protein Urine Neg (Negative); Specific Gravity, Urine 1.025 (1.005-1.030); Urine Appearance SL Hazy (CLEAR); Urine Color Yellow (Yellow); Urobilinogen Urine Norm (Negative); pH Urine 5 (5-7)
[2020-12-01 16:15] LABS: Add Urine Microscopic? YES; Leukocyte Esterase Urine Trace (Negative)
[2020-12-01 16:21] LABS: Bacteria Urine 1+ /hpf; Mucus Urine 1+ /hpf; RBC Urine 25-40 /hpf (0-2); Squamous Epithelial Cell Urine 0-4 /hpf (0-5); WBC Urine 0-4 /hpf (0-5)
[2020-12-01 16:22] LABS: Add Urine Culture? Yes
--- NOTE | 2020-12-01 16:22 | PM.DCS ---
Discharge Providers Date of Admission: 11/30/20 18:18 Date of Discharge: December 01, 2020 Attending Provider at Admission: Gerry Jalloh MD Attending Provider at Discharge: Issac Perrin Primary Care Provider: Fred Rangel MD Diagnoses at Discharge Discharge Diagnosis (1) Intervertebral disc protrusion: Status: Acute Reason for Visit Reason for Visit: BACK PAIN Hospital Course Hospital Course Pleasant 35-year-old lady without much past medical history apart from anxiety, current smoker was placed in observation for assessment management due to progressively worsening lower back pain over the past several weeks, to the point that she could not get out of bed the night of admission to urinate, and when bent over in the shower felt a pop in her back which dropped her to her knees, unable to get up herself. With reported urinary retention subsequently. She was started on IV steroids, pain control. She was assessed by MRI lumbar spine with finding of small L4-L5 disc protrusion. Orthospine assessment was requested. She was monitored in the hospital prior to planning additional treatments. She was assessed by PT/OT. Today she was feeling somewhat better. She should do well with discharge, with outpatient physical therapy as per OT recommendations. Orthospine surgeon will also see her for reassessment on and consideration whether any additional treatment like CSI may be needed. We had a long discussion with her regarding safe lifting and protecting her back. 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 Discussed with her safety considerations. At this time she will need to let her back heal prior to considering resuming work. She states she will obtain assistance later with turning heavier pieces, and will be much more mindful to protect her back, avoid any lifting with her back or with torso turn, etc. Urine culture and urinalysis are requested due to some dysuria. Due to symptoms we will go ahead and provide her with a course of antibiotic. Culture results will be pending. She reports with steroids also gets very bad yeast infections requesting for a dose of Diflucan which we discussed and is prescribed. Due to microscopic hematuria, please repeat UA to confirm clearance. She is not currently on menses. Could be secondary to Yanes or cystitis. Otherwise with smoking history please consider additional assessment if without resolution. Renal ultrasound obtained prior to discharge due to back pain, microscopic hematuria, is unremarkable. Physical Exam Const: COMMON NORMALS: no acute distress and patient oriented x3 HENMT: COMMON NORMALS: oropharynx normal Neck/C-Spine: COMMON NORMALS: no JVD Resp: COMMON NORMALS: normal respiratory effort and clear to auscultation bilaterally AUSCULTATION: clear to auscultation bilaterally Cardio: COMMON NORMALS: no JVD, regular rhythm, S1 normal heart sound present, S2 normal heart sound present and No murmurs present (Cardio) RHYTHM: regular rhythm HEART SOUNDS: S1 normal heart sound present and S2 normal heart sound present GI: COMMON NORMALS: Normal to inspection, nondistended, normoactive bowel sounds present, Soft to palpation and non-tender PALPATION: Yes Soft to palpation Extremity: COMMON NORMALS: no joint enlargement and no pedal edema Neuro: COMMON NORMALS: patient oriented x3 and moves all extremities Skin: COMMON NORMALS: no rashes or lesions noted GENERAL SKIN EXAM: no rashes or lesions noted Urinary Catheter Management^: Yanes: Cath Placed During This Visit: yes Reason for Continuing Indwelling Catheter: Acute Urinary Retention or Obstruction Urinary Catheter Date of Insertion: 11/30/20 Urinary Catheter Time of Insertion: 13:37 Discharge Data Data Completed and Pending: Completed Studies During Hospitalization Category Date Time Status MR lumbar spine w o con* [id number] Urgen t MRI 11/30/20 14:00 Completed Pending at discharge Category Date Time Status Reflex Urine Micr oscopic Routine Lab 12/01/20 15:40 Results Urinalysis Routin e Lab 12/01/20 15:40 Results Labs from last 24 hours 12/01/20 12/01/20 12/01/20 15:40 07:00 05:07 WBC RBC Hgb Hct MCV MCH MCHC RDW Plt Count MPV Neut % (Auto) Lymph % (Auto) [place] % (Auto) Eos % (Auto) Baso % (Auto) Neut # (Auto) Lymph # (Auto) [place] # (Auto) Eos # (Auto) Baso # (Auto) Nucleated RBC % (a uto) Nucleated RBCs # Sodium 135 L Potassium 4.0 Chloride 106 Carbon Dioxide 21 L Anion Gap 12.0 BUN 10 Creatinine 0.4 L GFR Calculation 181.6 H Glucose 138 H Calculated Osmolal ity 281 L Calcium 8.4 L Iron TIBC % Saturation Unsat Iron Binding Total Bilirubin 0.3 AST 9 ALT 7 Alkaline Phosphata se 38 Total Protein 6.6 Albumin 4.1 Globulin 2.5 HCG, Qual Negative Urine Color Yellow Urine Appearance Sl hazy Urine pH 5 Ur Specific Gravit y 1.025 Urine Protein Neg Urine Glucose (UA) 1+ Urine Ketones Negative Urine Blood 3+ H Urine Nitrate Negative Urine Bilirubin Neg Urine Urobilinogen Norm Ur Leukocyte [place] ase Trace H Urine RBC Pending Urine WBC Pending Ur Squamous Epith Cells Pending Amorphous Sediment Not Reportable Urine Bacteria Pending 12/01/20 11/30/20 05:07 12:06 WBC 6.3 RBC 3.94 L Hgb 11.6 Hct 34.7 L MCV 88.1 MCH 29.4 MCHC 33.4 RDW 11.5 L Plt Count 158 MPV 11.8 H Neut % (Auto) 92.7 Lymph % (Auto) 6.2 [place] % (Auto) 0.6 Eos % (Auto) 0.0 Baso % (Auto) 0.0 Neut # (Auto) 5.87 Lymph # (Auto) 0.4 L [place] # (Auto) 0.0 L Eos # (Auto) 0.0 Baso # (Auto) 0.0 Nucleated RBC % (a uto) 0 Nucleated RBCs # 0.0 Sodium Potassium Chloride Carbon Dioxide Anion Gap BUN Creatinine GFR Calculation Glucose Calculated Osmolal ity Calcium Iron 86 TIBC 301 % Saturation 28.5 Unsat Iron Binding 215 Total Bilirubin AST ALT Alkaline Phosphata se Total Protein Albumin Globulin HCG, Qual Urine Color Urine Appearance Urine pH Ur Specific Gravit y Urine Protein Urine Glucose (UA) Urine Ketones Urine Blood Urine Nitrate Urine Bilirubin Urine Urobilinogen Ur Leukocyte [place] ase Urine RBC Urine WBC Ur Squamous Epith Cells Amorphous Sediment Urine Bacteria Vitals: Last Vital Signs Temp 98.4 F 12/01/20 15:54 Pulse 86 12/01/20 15:54 Resp 18 12/01/20 15:54 BP 106/67 12/01/20 15:54 Pulse Ox 95 12/01/20 15:54 Discharge Plan Discharge Patient Disposition: Home Condition: Stable Prescriptions: New prednisone 20 mg tablet 20 mg PO DAILY Qty: 15 RF: 0 hydrocodone-acetaminophen 7.5-325 mg tablet 1 tab PO Q6H PRN (Reason: pain) Qty: 20 RF: 0 Zanaflex 4 mg capsule 4 mg PO TID PRN (Reason: muscle spasticity) Qty: 15 RF: 0 lidocaine 5 % adhesive patch,medicated 1 patch topical Q24H Qty: 30 RF: 0 nitrofurantoin macrocrystal 50 mg capsule 50 mg PO Q6H 7 Days Qty: 28 RF: 0 Diflucan 150 mg tablet 150 mg PO ONCE Qty: 1 RF: 0 Continued Mirena 20 mcg/24 hours (5 yrs) 52 mg intrauterine device See Rx Instructions .ROUTE .COMPLEX RF: 0 albuterol sulfate [Ventolin HFA] 90 mcg/actuation HFA aerosol inhaler 2 puff INHALATION Q4H PRN (Reason: shortness of breath or wheezing) Qty: 18 RF: 0 Ultram 50 mg Tablet 100 mg PO PRN RF: 0 Aleve 220 mg Tablet 440 mg PO PRN RF: 0 desvenlafaxine 50 mg tablet extended release 24 hr 50 mg PO QAM RF: 0 No Action (DME) POCKET CHAMBER Spacer See Rx Instructions .ROUTE .MEDSUPPLY Qty: 1 RF: 0 Discharge Orders: Discharge Order (Routine); Ordered 12/01/20 Ordered By: Issac Perrin Other Ambulatory Orders: Physical Therapy Eval and Treat Outpatient (Order) Timeframe: 1 Day Facility: [facility] - Location: Physical Therapy Ordered By: Issac Perrin Referrals: Ariel Ya DO [Physician] - 12/04/20 (bulging disc, seen in ER. ) Fred Rangel MD [Primary Care Provider] - 4-7 days Discharge Diet: Usual diet Discharge Activity: Increase activity as tolerated and As per PT/OT instructions Patient Instructions: Hydrocodone/Acetaminophen (By mouth), Prednisone (By mouth), Tizanidine (By mouth), How to Stop Smoking (GEN), Lumbar Disc Herniation (ED), Acute Low Back Pain (GEN), Lumbar Radiculopathy (ED), Opioid Safety Activity Restrictions/Additional Instructions: Activity as tolerated you may need help or assistance and can try a walker if that helps to get around a little bit better. Make sure you are urinating regularly return if you have numbness or tingling between your legs or if you have worsening of symptoms or numbness down your leg. You may really try ibuprofen and/or Aleve for the inflammation (please do not take both at the same time) and only use the pain medication when severely needed or the muscle relaxers. Avoid opioid pain medications unless absolutely necessary due to risk of developing tolerance, other associated adverse effects. Do not complete the entire prescribed amount unless they are necessary. Please discontinue and discard medications as soon as they are no longer needed. Do not keep old medications. Please follow-up with your primary doctor to reassess urine analysis due to small amount of blood. Please have them recheck your urine to make sure small amount of blood has cleared. In case there is no clearing, additional investigation will be needed with history of smoking to exclude other more sinister causes and make sure there is no malignancy or other concerning findings. Please avoid any smoking as smoking raises your risk of various cancers, as well as cardiovascular disease including heart attack, stroke, and numerous other complications. Discharge Attestations Time Spent in Discharge Care*: greater than 30 min Quality Metrics Clinical Quality Measures During this hospital stay, did patient experience: None Coding Level of Care Code Acute Billieg JAYNE SANABRIA note Diagnoses Intervertebral disc protrusion
--- NOTE | 2020-12-01 16:34 | USR_ITS ---
NOTE: Report was unsigned for reason: Order was edited. Original Signature date and time was: 12/01/20 @ 1848 PROCEDURE INFORMATION: Exam: US Retroperitoneal; Complete; Kidneys and Bladder Exam date and time: 12/01/2020 6:04 PM Age: 35 years old Clinical indication: Abdominal pain; Flank; Right lower quadrant (rlq); Additional info: Back pain, dysuria, hematuria, assess for renal stone/hydro TECHNIQUE: Imaging protocol: Real-time ultrasound of the retroperitoneum with image documentation. Complete exam focused on the kidneys and bladder. COMPARISON: US Pelvis Female [id number] 05/31/2017 10:19 PM FINDINGS: Right kidney: Normal. No stones. No hydronephrosis. The right kidney measures 11.9 cm in length. Left kidney: Normal. No stones. No hydronephrosis. The left kidney measures 10.4 cm. Urinary bladder: Unremarkable. [facility] US/US renal BI with PV bladder IMPRESSION: Unremarkable kidneys and bladder.
--- NOTE | 2020-12-01 20:25 | PC.NURSE ---
Pt was at the desk stating that her medications were sent to [facility] pharmacy, however it was closed, so she won't have any pain medications overnight. Angelo De Leon RN called Dr. Perrin and he gave a verbal order for a one time dose of Hydrocodone-APAP 7.5-325mg 2 tablets for her to take PRN every 6 hours overnight as needed for moderate to severe pain as well as Zanaflex 4 mg 1 tablet to take overnight if needed for muscle spasms until she is able to pickup her Rx on 12/02/2020. I called and spoke with Jocelyne Rodriguez, RN, marine painter and received approval to send the above medications home from the [facility] with her and spoke with Sami Ramos in pharmacy to give him this information. Education was provided to the patient regarding medications and to still pickup her Rx from the [facility] pharmacy on 12/02. She verbalizes understanding and denies further questions/concerns at this time.
[2020-12-01] MEDS: nitrofurantoin SR (BID) 100 mg Capsule PO (20:30)
== END 2020-12-01 20:35 | disposition home or self-care (01) ==
LOC: ER 15:56 → MEDSURG 18:50
PROVIDERS: Admitting Provider Student in an Organized Health Care Education/Training Program; Emergency Provider Emergency Medicine; PCP Internal Medicine; Visit Provider Internal Medicine
DX: M51.26 Other intervertebral disc displacement, lumbar region (principal); F41.9 Anxiety disorder, unspecified; F17.210 Nicotine dependence, cigarettes, uncomplicated
CPT/HCPCS: 36415; 51702; 72148; 76770; 76857; 80053; 81001; 81025; 83540; 83550; 85025; 87086; 96361; 96374; 96375; 97110; 97161; 97165; 99285; G0378; J1100; J1170; J2920; J7030

== ENCOUNTER → 2021-08-10 16:13 | Outpatient (BNVA) | payer OTHER, SELFPAY | PROVIDERS: PCP Internal Medicine; Visit Provider Nurse Practitioner Family | DX: Z20.822 Contact with and (suspected) exposure to COVID-19 (principal); Z71.6 Tobacco abuse counseling | CPT/HCPCS: 87635 ==

== ENCOUNTER 2022-03-04 07:46 | Emergency (ER) | payer SELFPAY ==
[2022-03-04 07:50] VITALS: BP 123/70; PULSE 82; RESP 24; TEMP 36.5; O2SAT 100; BMI 21.2
--- NOTE | 2022-03-04 08:00 | CT_ITS ---
WS: [id number] CT ABDOMEN AND PELVIS WITH CONTRAST HISTORY: Central abdominal pain with nausea and diarrhea for 2 days. TECHNIQUE: Imaging performed of the abdomen and pelvis with IV contrast. Single phase imaging of the abdomen. Coronal and sagittal reformats are submitted. All CT scans at [facility] use at [address] [facility] one of these dose optimization techniques: automated exposure control; mA and/or kV adjustment per patient size (includes targeted exams where dose is matched to clinical indication); or iterative re construction. IV CONTRAST: Omnipaque 350; 95 mL IV. Oral contrast: No DLP: 325.51 mGy.cm COMPARISON: 08/29/2007 Lower thorax: Lung bases are clear. Heart is normal size. No hiatal hernia. Liver/biliary system: Liver is normal size. There is periportal edema throughout the liver. No mass i dentified. Normal enhancement of the portal vein. Gallbladder: Normal. No gallstones or wall thickening. No pericholecystic fluid. Pancreas: No duct dilatation or mass. Spleen: Normal size spleen. No mass or infarct. Adrenal glands: Normal. Right kidney: Normal. Left kidney: Normal. Aorta: Normal. Lymphadenopathy: None. Free fluid: Small amount of free fluid in the pelvis. GI tract: Nondistended stomach. No small bowel obstruction. Increased air and fecal material througho ut the colon to the splenic flexure. There is a large amount of fecal retention in the cecum. The cec um is low-lying extending into the pelvis. The appendix has been removed. Abdominal wall: Unremarkable abdominal wall. No hernia. Pelvis: Retroverted uterus. There is an IUD in good position. Small amount of free fluid. Bones: Unremarkable. CT/CT abdomen pelvis w con* [id number] IMPRESSION: 1. Mild diffuse periportal edema. This can be seen with rapid IV fluid hydrati on or hepatitis. 2. Small amount of free fluid in the pelvis is probably physiologic. 3. Extensive fecal retention in the RIGHT colon to the splenic flexure. 4. Prior appendectomy.
--- NOTE | 2022-03-04 08:10 | ED_ITS ---
HPI - Abdominal Pain General: Chief Complaint: Abdominal Pain Stated Complaint: abd pain Time Seen by Provider: 03/04/22 07:50 Source: patient Mode of arrival: ambulatory Limitations: no limitations History of Present Illness: 36-year-old female who states she woke up this morning at 7 AM with abdominal pain she states it is in her mid abdomen in her epigastric region and seems to radiate to her back. States pain is sharp in nature radiates into into her back as she stated. States her pain is an 8 out of 10 she had some nausea denies any diarrhea she denies any fevers denies any worsening improving factors. Associated Symptoms: Reports nausea and vomiting; Denies chills, dysuria and fever(s) Related Data: Date of Last Menstrual Period: 02/25/22 Review of Systems Const: Denies: fever(s), chills, body aches or change in appetite Eyes: Denies: blurry vision or eye discomfort ENMT: Denies: throat pain or dental pain Card: Denies: chest pain Resp: Denies: dyspnea GI: Reports: abdominal pain, nausea and vomiting : Denies: dysuria Musc: Denies: neck pain or back pain Skin/Breast: Denies: rash Neuro: Denies: headache(s) Psych: Denies: depression [place]/Lymph: Denies: easy bruising All/Imm: Denies: urticaria PFSH ED PFSH: Medical History (Updated 03/04/22 @ 09:36 by Johann Post MD) Anxiety Surgical History History of appendectomy Family History (Updated 10/23/21 @ 10:15 by Yael Correa) Other Diabetes Heart disease Denies family history of Colon cancer Ovarian cancer Hypercholesteremia Breast cancer Hypertension Uterine cancer Thyroid disease Stroke Female Reproductive History: Date of last menstrual period: 02/25/22 Physical Exam Const: COMMON NORMALS: no acute distress, patient oriented x3 and healthy appearing HENMT: COMMON NORMALS: normocephalic and atraumatic HEAD & SCALP: normocephalic and atraumatic Eye: COMMON NORMALS: Equal, round and reactive pupils present and EOMs intact bilaterally PUPIL: Yes Equal, round and reactive pupils present Neck/C-Spine: COMMON NORMALS: full ROM and supple Chest: COMMONS NORMALS: normal inspection of the chest and normal palpation of entire chest wall Resp: COMMON NORMALS: normal respiratory effort, No retractions, No use of a ccessory muscles and clear to auscultation bilaterally AUSCULTATION: clear to auscultation bilaterally Cardio: COMMON NORMALS: regular rate, regular rhythm and No murmurs present (Cardio) RATE: regular rate RHYTHM: regular rhythm GI: COMMON NORMALS: Normal to inspection, nondistended, normoactive bowel sounds present and no masses OTHER: Diffuse tenderness on exam Extremity: COMMON NORMALS: normal to inspection and full ROM Neuro: COMMON NORMALS: patient oriented x3, moves all extremities and no focal motor deficits Psych: COMMON NORMALS: mental status grossly normal, Normal thought process p resent and cooperative THOUGHT PROCESS: Normal thought process present Skin: COMMON NORMALS: no rashes or lesions noted and no wounds GENERAL SKIN EXAM: no rashes or lesions noted Course Vital Signs: Vital signs: Vital Signs Temperature 97.7 F 03/04/22 07:50 Pulse Rate 61 03/04/22 09:30 Respiratory Rate 14 03/04/22 09:30 Blood Pressure 102/69 03/04/22 09:30 Pulse Oximetry 99 03/04/22 09:30 Oxygen Delivery Me thod 03/04/22 09:30 MDM - Abdominal Pain Medical Decision Making Patient presents here with abdominal pain CT scan showed some constipation no other findings blood work here is normal as well her EKG is normal we will place her on MiraLAX we will get her surgery follow-up she is stable for discharge she is to follow-up as scheduled and return if worsening she understands agrees to plan. Lab Data : 03/04/22 08:08 03/04/22 08:08 Labs/Radiology: Radiology Impressions Abdomen/Pelvis CT 03/04/22 08:00 IMPRESSION: 1. Mild diffuse periportal edema. This can be seen with rapid IV fluid hydration or hepatitis. 2. Small amount of free fluid in the pelvis is probably physiologic. 3. Extensive fecal retention in the RIGHT colon to the splenic flexure. 4. Prior appendectomy. Laboratory Results WBC 6.9 10^3/uL (4.0-10.0) 03/04/22 08:08 RBC 4.13 10^6/uL (4.1-5.3) 03/04/22 08:08 Hgb 12.1 g/dL (11.5-15.3) 03/04/22 08:08 Hct 36.5 % (37.0-47.0) L 03/04/22 08:08 MCV 88.4 fl (81-99) 03/04/22 08:08 MCH 29.3 pg (28.0-34.0) 03/04/22 08:08 MCHC 33.2 g/dL (30.0-36.0) 03/04/22 08:08 RDW 12.6 % (12.1-15.1) 03/04/22 08:08 Plt Count 186 10^3/cmm (130-400) 03/04/22 08:08 MPV 11.5 fL (7.4-10.4) H 03/04/22 08:08 Neut % (Auto) 49.9 % 03/04/22 08:08 Lymph % (Auto) 39.7 % 03/04/22 08:08 [place] % (Auto) 5.5 % 03/04/22 08:08 Eos % (Auto) 3.9 % 03/04/22 08:08 Baso % (Auto) 0.9 % 03/04/22 08:08 Neut # (Auto) 3.45 10^3/uL (1.8-7.7) 03/04/22 08:08 Lymph # (Auto) 2.7 10^3/uL (0.8-4.8) 03/04/22 08:08 [place] # (Auto) 0.4 10^3/uL (0.2-0.9) 03/04/22 08:08 Eos # (Auto) 0.3 10^3/uL (0.0-0.8) 03/04/22 08:08 Baso # (Auto) 0.1 10^3/uL (0.0-0.1) 03/04/22 08:08 Nucleated RBC % (auto) 0 % 03/04/22 08:08 Nucleated RBCs # 0.0 /100WBC 03/04/22 08:08 Sodium 141 mmol/L (136-145) 03/04/22 08:08 Potassium 3.8 mmol/L (3.5-5.1) 03/04/22 08:08 Chloride 105 mmol/L (98-107) 03/04/22 08:08 Carbon Dioxide 26 mmol/L (22-29) 03/04/22 08:08 Anion Gap 13.8 (5-19) 03/04/22 08:08 BUN 9 mg/dL (6-20) 03/04/22 08:08 Creatinine 0.6 mg/dL (0.5-0.9) 03/04/22 08:08 GFR Calculation 113.1 mL/min (90-130) 03/04/22 08:08 Glucose 95 mg/dL (65-115) 03/04/22 08:08 Calculated Osmolality 290 mOsm/kg (285-295) 03/04/22 08:08 Calcium 9.2 mg/dL (8.5-10.5) 03/04/22 08:08 Total Bilirubin 0.2 mg/dL (0.15-1.2) 03/04/22 08:08 AST 16 U/L (0-32) 03/04/22 08:08 ALT 16 U/L (0-33) 03/04/22 08:08 Alkaline Phosphatase 44 IU/L (35-105) 03/04/22 08:08 Total Protein 6.8 g/dL (6.6-8.7) 03/04/22 08:08 Albumin 4.4 g/dL (3.5-5.2) 03/04/22 08:08 Globulin 2.4 g/dL (1.3-4.6) 03/04/22 08:08 Lipase 41 U/L (13-60) 03/04/22 08:08 HCG, Qual Negative (Negative) 03/04/22 08:08 Urine Color Yellow (Yellow) 03/04/22 08:07 Urine Appearance Clear (CLEAR) 03/04/22 08:07 Urine pH 6 (5-7) 03/04/22 08:07 Ur Specific [place] 1.020 (1.005-1.030) 03/04/22 08:07 Urine Protein Neg (Negative) 03/04/22 08:07 Urine Glucose (UA) Norm (Normal) 03/04/22 08:07 Urine Ketones Negative (Negative) 03/04/22 08:07 Urine Blood Neg (Negative) 03/04/22 08:07 Urine Nitrate Negative (Negative) 03/04/22 08:07 Urine Bilirubin Neg (Negative) 03/04/22 08:07 Urine Urobilinogen Norm mg/dL (Negative) 03/04/22 08:07 Ur Leukocyte Esterase Negative (Negative) 03/04/22 08:07 Discharge Plan Discharge Patient Disposition: Home Clinical Impression: Abdominal pain Condition: Stable Prescriptions: New hydrocodone-acetaminophen 5-325 mg tablet 1 tab PO Q6H PRN (Reason: pain) Qty: 14 0RF Protonix 40 mg tablet,delayed release (DR/EC) 40 mg PO DAILY Qty: 60 0RF ondansetron 4 mg tablet,disintegrating 4 mg PO Q6H PRN (Reason: nausea and vomiting) Qty: 14 0RF Gavilax 17 gram powder in packet 17 g PO DAILY PRN (Reason: constipation) Qty: 30 0RF No Action azithromycin 250 mg tablet See Rx Instructions PO .COMPLEX Qty: 6 0RF Rx Instructions: take 500 mg today (day 1), then 250 mg for 4 days (days 2-5) PO 340 B Mirena 20 mcg/24 hours (5 yrs) 52 mg intrauterine device See Rx Instructions .ROUTE .COMPLEX Rx Instructions: pt states past due to be taken out celecoxib [Celebrex] 200 mg capsule 200 mg PO BID Qty: 60 0RF tizanidine 4 mg capsule 4 mg PO .qhs Qty: 30 0RF citalopram 40 mg tablet 40 mg PO DAILY Qty: 90 3RF albuterol sulfate [Ventolin HFA] 90 mcg/actuation HFA aerosol inhaler 2 puff INHALATION Q4H PRN (Reason: shortness of breath or wheezing) Qty: 18 0RF (DME) POCKET CHAMBER Spacer See Rx Instructions .ROUTE .MEDSUPPLY Qty: 1 0RF Rx Instructions: As directed Ultram 50 mg Tablet 100 mg PO PRN Aleve 220 mg Tablet 440 mg PO PRN lidocaine 5 % adhesive patch,medicated 1 patch topical Q24H Qty: 30 0RF Rx Instructions: leave on most painful area for up to 12 hrs Diflucan 150 mg tablet 150 mg PO ONCE Qty: 1 0RF Rx Instructions: administer on day 1 of therapy Zanaflex 4 mg capsule 4 mg PO TID PRN (Reason: muscle spasticity) Qty: 30 0RF prednisone 20 mg tablet 20 mg PO DAILY Qty: 15 0RF Rx Instructions: 3 tab po for 3 days, 2 tab po for 2 days, 1 tab po for 2 days hydrocodone-acetaminophen 7.5-325 mg tablet 1 tab PO Q6H PRN (Reason: pain) Qty: 14 0RF Discharge Orders: Discharge ED (Routine); Ordered 03/04/22 Ordered By: Johann Post Referrals: Fred Rangel MD [Primary Care Provider] - Tanner Navas MD [Physician] - Discharge Diet: Advance as tolerated Discharge Activity: Resume usual activity Patient Instructions: Abdominal Pain (ED), Opioid Safety Coding Level of Care Code ED Telecommunications Switch Technician for Chg Fwd Exam Comprehensive
[2022-03-04 08:18] VITALS: RESP 18
[2022-03-04] MEDS: sodium chloride 0.9% 1,000 ML 999 ML IV (08:18)
[2022-03-04] MEDS: ondansetron 2 mg/ML SDV 2 mL 4 MG IVP (08:18)
[2022-03-04] MEDS: morphine 4 mg/mL SDV 1 mL IVP (08:18)
[2022-03-04 08:31] LABS: Add Urine Microscopic? NO; Charge for UA Resulting for Rev
[2022-03-04 08:36] LABS: Basophils # 0.1 10^3/uL (0.0-0.1); Basophils % 0.9 %; Eosinophils # 0.3 10^3/uL (0.0-0.8); Eosinophils % 3.9 %; Hematocrit 36.5 % (37.0-47.0); Hemoglobin 12.1 g/dL (11.5-15.3); Lymphocytes # 2.7 10^3/uL (0.8-4.8); Lymphocytes % 39.7 %; Mean Corpuscular HGB Conc 33.2 g/dL (30.0-36.0); Mean Corpuscular Hemoglobin 29.3 pg (28.0-34.0); Mean Corpuscular Volume 88.4 fl (81-99); Mean Platelet Volume 11.5 fL (7.4-10.4); Monocytes # 0.4 10^3/uL (0.2-0.9); Monocytes % 5.5 %; Neutrophils # 3.45 10^3/uL (1.8-7.7); Neutrophils % 49.9 %; Nucleated Red Blood Cells % 0 %; Platelet Count 186 10^3/cmm (130-400); Red Blood Count 4.13 10^6/uL (4.1-5.3); Red Cell Distribution Width 12.6 % (12.1-15.1); White Blood Count 6.9 10^3/uL (4.0-10.0)
[2022-03-04 08:51] LABS: HCG Qualitative Urine. Negative (Negative)
[2022-03-04 08:51] LABS: Urine Appearance Clear (CLEAR); Urine Color Yellow (Yellow); pH Urine 6 (5-7)
[2022-03-04 08:52] LABS: Bilirubin Urine Neg (Negative); Blood Urine Neg (Negative); Glucose Urine UA Norm (Normal); Ketones Urine Negative (Negative); Leukocyte Esterase Urine Negative (Negative); Nitrate Urine Negative (Negative); Protein Urine Neg (Negative); Urobilinogen Urine Norm (Negative)
[2022-03-04] MEDS: iohexol 350 mg/mL 100 mL Btl IV (09:01)
[2022-03-04 09:07] LABS: Alanine Aminotransferase 16 U/L (0-33); Albumin Level 4.4 g/dL (3.5-5.2); Alkaline Phosphatase 44 IU/L (35-105); Anion Gap 13.8 (5-19); Aspartate Amino Transferase 16 U/L (0-32); Blood Urea Nitrogen 9 mg/dL (6-20); Calcium 9.2 mg/dL (8.5-10.5); Carbon Dioxide 26 mmol/L (22-29); Chloride 105 mmol/L (98-107); Globulin 2.4 g/dL (1.3-4.6); Glomerular Filtration Rate 113.1 mL/min (90-130); Glucose 95 mg/dL (65-115); Lipase 41 U/L (13-60); Osmolality Calculated 290 mOsm/kg (285-295); Potassium 3.8 mmol/L (3.5-5.1); Sodium 141 mmol/L (136-145); Total Bilirubin 0.2 mg/dL (0.15-1.2); Total Protein 6.8 g/dL (6.6-8.7)
[2022-03-04 09:30] VITALS: BP 102/69; PULSE 61; RESP 14; O2SAT 99
--- NOTE | 2022-03-05 08:29 | DCPLANNER ---
Addendum entered by Vandana Fournier 03/12/22 15:15: manager water wastewater received the following message from the general surgery clinic: called patient again, no answer.. unable to leave message... Mailing letter to make patient aware of us trying to reach her!! On 03/08/22 @ 09:09 Johanne Kaufman Wrote To [employer] straight to 03/08 mailbox full On 03/05/22 @ 08:52 Johanne Kaufman Wrote To [employer] to mailbox is full Original Note: manager water wastewater had message to schedule a follow up appointment for patient with general surgery. manager water wastewater sent patients information to the front office staff at general surgery. Patients information will be printed and reviewed. Clinic will call patient with appointment information.
== END 2022-03-04 10:15 | disposition home or self-care (01) ==
PROVIDERS: Emergency Provider Emergency Medicine; PCP Internal Medicine
DX: R10.9 Unspecified abdominal pain (principal)
CPT/HCPCS: 74177; 80053; 81003; 81025; 83690; 85025; 96361; 96374; 96375; 99285; J2270; J2405; J7030; Q9967

== ENCOUNTER → 2022-04-03 11:49 | Outpatient (BNVA) | payer SELFPAY | PROVIDERS: PCP Internal Medicine; Visit Provider Nurse Practitioner Family | DX: Z20.822 Contact with and (suspected) exposure to COVID-19 (principal) | CPT/HCPCS: 87426 ==

== ENCOUNTER 2022-09-15 10:11 | Outpatient (CLI) | payer SELFPAY ==
--- NOTE | 2022-09-15 10:43 | XR_ITS ---
WS: [id number] Exam: XR abdomen 1V* [id number] Date/Time of Exam: 09/15/2022 10:51 AM Reason For Exam: T83.32XA - Displacement of intrauterine contraceptive dev... No bowel obstruction or free air. No sign of organ enlargement. Moderate amount retained stool in the transverse and right colon. A T-type IUD noted in the central upper pelvis. Bony structures are inta ct. XR/XR abdomen 1V* [id number] IMPRESSION: 1. No acute abdominal process. Constipation. 2. T-type IUD seen in the upper central pelvis.
[2022-09-18 20:01] LABS: Lmp: NONE GIVEN; Prev. Pap: NONE GIVEN
== END 2022-09-15 10:12 | disposition home or self-care (01) ==
LOC: RAD 10:15
PROVIDERS: Visit Provider Nurse Practitioner Women's Health
DX: T83.32XA Displacement of intrauterine contraceptive device, initial encounter (principal); Z12.4 Encounter for screening for malignant neoplasm of cervix; Y84.8 Other medical procedures as the cause of abnormal reaction of the patient, or of later complication, without mention of misadventure at the time of the procedure
CPT/HCPCS: 74018; 87624

== ENCOUNTER → 2023-10-04 12:58 | Outpatient (BNVA) | payer SELFPAY | PROVIDERS: PCP Family Medicine; Referring Provider Dermatology; Visit Provider Orthopaedic Surgery | DX: M54.9 Dorsalgia, unspecified (principal); M48.062 Spinal stenosis, lumbar region with neurogenic claudication | CPT/HCPCS: 72110 ==

== ENCOUNTER → 2024-10-02 09:07 | Outpatient (BNVA) | payer MEDICAID, SELFPAY | PROVIDERS: PCP Family Medicine; Visit Provider Orthopaedic Surgery | DX: M54.50 Low back pain, unspecified (principal); M25.552 Pain in left hip | CPT/HCPCS: 72110; 73502 ==

== ENCOUNTER 2024-10-11 09:30 | Outpatient (CLI) | payer MEDICAID, SELFPAY ==
--- NOTE | 2024-10-11 09:30 | MR_ITS ---
WS: [id number] MRI LUMBAR SPINE NONCONTRAST TECHNIQUE: Sagittal T1, T2 and STIR imaging. Axial T1 and T2 imaging. CLINICAL INFORMATION: Back Pain COMPARISON: MRI 2020 FINDINGS: Mild lumbar curve. No acute compression. Central disc protrusion L4-5 with a small annular tear. L1-L2: Mild facet arthropathy. Spinal canal and foramen are patent. L2-L3: Mild annular bulging. Slight effacement of the ventral thecal sac. Slight narrowing LEFT subarticular recess. Mild LEFT foraminal narrowing. Mild facet arthropathy. L3-L4: Mild annular bulging with slight impingement LEFT subarticular recess and traversing LEFT L4 nerve root. Mild facet arthropathy. LEFT foraminal protrusion impinges the exiting LEFT L3 nerve root with moderate LEFT foraminal narrowing. This appears progressed compared to previous. Mild facet arthropathy. L4-L5: Central disc protrusion with an annular tear. Significant impingement of traversing L5 nerve roots bilaterally. Mild facet arthropathy. Mild to moderate central canal stenosis. Mild bilateral foraminal narrowing. L5-S1: Shallow central disc osteophyte protrusion. Slight contact of the traversing LEFT greater than RIGHT S1 nerve roots. Mild facet arthropathy. Foramen are patent. Visualized pelvic bony structures: Normal. Paravertebral soft tissues: Normal. Retroverted and retroflexed uterus MR/MR lumbar spine wo con* [id number] IMPRESSION: 1. Central disc protrusion L4-5 with an annular tear. Marked impingement of th e traversing L5 nerve roots bilaterally in the subarticular recess. Mild centra l canal stenosis. 2. LEFT foraminal protrusion L3-4 impinges the exiting LEFT L3 nerve root with moderate LEFT foraminal narrowing. Impingement of the LEFT subarticular recess at this level. 3. Mild bilateral L4-5 foraminal narrowing. 4. Shallow central disc osteophyte complex L5-S1 with slight contact of the tr aversing S1 nerve roots.
== END 2024-10-11 09:31 | disposition home or self-care (01) ==
PROVIDERS: PCP Family Medicine; Visit Provider Orthopaedic Surgery
DX: M51.26 Other intervertebral disc displacement, lumbar region (principal); M51.369 Other intervertebral disc degeneration, lumbar region without mention of lumbar back pain or lower extremity pain; R93.7 Abnormal findings on diagnostic imaging of other parts of musculoskeletal system; M48.061 Spinal stenosis, lumbar region without neurogenic claudication; M43.8X6 Other specified deforming dorsopathies, lumbar region; M47.896 Other spondylosis, lumbar region; M47.897 Other spondylosis, lumbosacral region; N85.4 Malposition of uterus
CPT/HCPCS: 72148

== ENCOUNTER → 2025-01-17 13:55 | Outpatient (BNVA) | payer MEDICAID, SELFPAY | PROVIDERS: PCP Family Medicine; Visit Provider Orthopaedic Surgery | DX: M54.50 Low back pain, unspecified (principal); Z01.818 Encounter for other preprocedural examination; M48.062 Spinal stenosis, lumbar region with neurogenic claudication; Z09 Encounter for follow-up examination after completed treatment for conditions other than malignant neoplasm | CPT/HCPCS: 36415; 80053; 81001; 85025 ==

== ENCOUNTER 2025-01-30 05:44 | Day surgery (SDC) | payer MEDICAID, SELFPAY ==
[2025-01-30] VITALS (9 sets, daily range): BP systolic 93–124; BP diastolic 62–87; PULSE 73–102; RESP 10–24; TEMP 36.4–36.8; O2SAT 99–100; BMI 25.0
[2025-01-30 06:20] LABS: OR HCG Qualitative Urine Negative (Negative)
--- NOTE | 2025-01-30 06:32 | W.PM.OPSUD ---
Surgery/Procedure H&P Update DATE OF PROCEDURE: January 30, 2025 DATE H&P PERFORMED: 01/17/25 H&P UPDATE INFORMATION: I have reviewed H&P completed within last 30 days, I have examined patient prior to procedure and No changes to prior documentation PREOP DIAGNOSIS: Lumbar stenosis neurogenic claudication PLANNED PROCEDURE: Operation Date: 01/30/25 07:00 Proposed Procedures p Lumbar Spine Decompression Lumbar Decompression(Not Applicable) - Ariel Ya DO
--- NOTE | 2025-01-30 06:49 | P.ANESASSM_ITS ---
Pre-Anesthetic Assessment Height/Weight: Height 1.6 m Weight 63.957 kg Temp Pulse Resp BP Pulse Ox O2 Del Method 98.0 F 73 18 112/70 99 Room Air 01/30/25 06:10 01/30/25 06:10 01/30/25 06:10 01/30/25 06:10 01/30/25 06:10 01/30/25 06:10 Preop Diagnosis: Lumbar stenosis neurogenic claudication Operation Date: 01/30/25 07:00 Proposed Procedures p Lumbar Spine Decompression Lumbar Decompression(Not Applicable) - Ariel Ya, Familial anesthetic complications: Epidural didn't work well Was Beta Michi taken within 24 hours: N/A Was Clonidine taken within 24 hours: N/A Last intake: Intake Last Liquid Date 01/29/25 Last Liquid Time 23:00 Last Solid Date 01/29/25 Last Solid Time 23:00 Social Tobacco and No alcohol Exam alert, oriented x 3, clear to auscultation bilaterally and regular rate & rhythm Airway Mallampati: Class II Dentition: full Anesthetic Plan ASA status: 2 Anesthesia: General Risk of > 500 ml blood loss (7ml/kg in children): No Medications/Allergies Home Medications ?Medication ?Instructions ?Recorded ?Confirmed ?Last Taken ?Type citalopram 40 mg tablet 40 mg PO DAILY #90 tabs 04/0 09/1801/29/25 01/29/25 Rx dextroamphetamine-amphetamine 10 10 mg PO .qpm 30 days #30 tabs 01/21/25 01/29/25 01/29/25 Rx mg tablet dextroamphetamine-amphetamine ER 30 mg PO QAM 30 days #30 caps 01/21/25 01/29/25 01/29/25 Rx 30 mg 24hr capsule,extend release (Adderall XR) amitriptyline 25 mg tablet 25 mg PO BEDTIME 01/29/25 0 01/29/25 01/29/25 History bupropion HCl 300 mg 24 hr tablet, 300 mg PO DAILY 03/1801/29/25 01/29/25 History extended release Allergies Allergy/AdvReac Type Severity Reaction Status Date / Time Penicillins Allergy ALGY-Swell Verified 01/30/25 06:12 Lip/Tongue/Throat Sulfa (Sulfonamide Allergy ALGY-Anaphy Verified 01/30/25 06:12 Antibiotics) laxis tetracycline Allergy Unknown Verified 01/30/25 06:12 Current Medications Generic Name Dose Route Start Last Admin Trade Name Arturoq PRN Reason Stop Dose Admin Sodium Chloride 1,000 mls @ 30 mls/hr 01/30/25 06:00 01/30/25 06:30 Sodium Chloride 0.9% IV 01/31/25 05:59 30 mls/hr .Q24H RITESH Administration PFSH Anesthesia Medical History IBD (inflammatory bowel disease) IBS (irritable bowel syndrome) No pertinent past medical history neghx: htn,dm,thyroid,dvt/pe PCP: 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 Had colposcopy during with biopsy which showed GRIFFIN 2. Post pap performed on 09/25/14 showed low-grade BECKIE, cannot rule out high grade lesion. Colposcopy with biopsy performed on 11/06/14 and showed GRIFFIN 3. 11/26/2014: LEEP performed in OR. Final pathology: GRIFFIN 2 with extension to endocervical margins. 06/02/2015: Pap smear was normal.---->Plan pap at time of annual in approximately 6 months. Impression: - Patient was supposed to return in 6 months for a repeat pap following her last Pap smear which was 06/02/2015--she failed to follow-up due to loss of insurance. She needs a Pap smear and I have along the recommended that she do this at the health Department since she does not have health insurance. If she declines to do so we may collect this here at her next follow-up appointment. Recorded 07/03/2019 01:06 PM by Radha Hernandez, AGUILA,WHDRAKE, Annotation/Addendum. ADHD (attention deficit hyperactivity disorder) delivery delivered COVID-19 Intervertebral disc protrusion Anxiety Suspected 2019 novel coronavirus infection Surgical History History of ankle surgery History of hernia repair History of appendectomy Family History Grandmother Cancer colon Father Cancer skin Other Bleeding disorder Clotting disorder Diabetes Heart disease Hypercholesteremia Hypertension Lung disease Psychiatric illness Denies family history of Ovarian cancer CAD (coronary artery disease) Dementia Chronic kidney disease (CKD) Breast cancer Anesthesia complication Uterine cancer Thyroid disease Stroke Social History Smoking and tobacco/nicotine status: former use of tobacco/nicotine Quit status (tobacco/nicotine): has tried quititng Alcohol intake: current Alcohol intake frequency: few times a week Substance/Drug Use: never Lives independently: Yes Marital status: Single Number of children: 2 Current occupational status: unemployed and other Details: has pending court issues Current gender identity: Female Special erasto needs: No Agree to transfusion: Yes Female Reproductive History Date of last menstrual period: 01/25/25
[2025-01-30] MEDS: lidocaine-epi 1% 20 mL INJ INJECTION (07:39)
--- NOTE | 2025-01-30 08:27 | XR_ITS ---
WS: [id number] Exam: XR lumbar spine 2-3V* [id number] Date/Time of Exam: 01/30/2025 8:27 AM Reason For Exam: OR PICS Single AP C-arm image of the lower lumbar spine is submitted. The image was obtained for preoperative localization purposes.
--- NOTE | 2025-01-30 08:30 | PM.OP ---
Operative Report Date of procedure: January 30, 2025 Pre-op diagnosis: Lumbar stenosis with claudication Post-op diagnosis: same Procedure done: Patient is brought to the operative suite. After undergoing anesthesia they are placed in the prone position. All areas of impingement are well padded. Patient is then prepped and draped in the normal sterile fashion. A skin incision is made over the L4/5 level. This is confirmed under c-arm guidance. A series of dilators are passed and the tubular retractor is docked on the L4 lamina. A bovie is used to clear the soft tissue off the lamina and the L 4/5 facet joint. A high speed ggaan is then used to perform the laminectomy and take down the medial aspect of the L 4/5 facet joint. A kerrison rongeure was then used to take down the remaining lamina and smooth the edged of the laminectomy up to the point where the ligamentum flavum attaches. Attention was then brought to the medial aspect of the facet joint. The remaining medial aspect of the superior and inferior aspect of the facet joint were taken down with the kerrison from the pedicle of L4 to L 5. The facet joint had significant hypertrophy. Attention was then brought to the Ligamentum Flavum. The ligament was taken down from the lamina of L4 to L5 and out medially to the remaining facet joint. The ligament was thick. The dura was then exposed. The dura was in good repair. L5 nerve root was reflected medially small disc bulge was taken down and removed. This was done with a micropituitary all free fragments were irrigated out The L4 nerve was then traced with a curette out the L4/5 foramen and found to be adequately decompressed. The L5 nerve was traced with a curette around the L5 pedicle. The lateral recess was opened with a kerrison helping to further decompress the L5 nerve. The tubular retractor was then tilted to the contralateral side. The bovie was used to take down the soft tissue on the spinous process. The high speed gagan was used to take down the spinous process and then the contralateral lamina of L4. The kerrison rongeur was used to take down the remaining lamina to the point where the ligamentum flavum attached and the ligamentum flavum was taken down from L4 to L5. The kerrison rongeur was then used to reach across and take down the medial aspect of the contralateral L4/5 facet joint.The currete was used to trace the contralateral L4 nerve out the L4/5 foramen to make sure it was decompressed adequatesly and the L5 was traced around the L5 pedicle. The lateral recess was opened further with the kerrison to ensure the L5 is adequately decompressed. Wound is then irrigated copiously with saline and surgiflo is used to stop any bleeding. The tubular retractor is removed and the wound is closed with vicryl and monocryl suture. Glue is then used to protect the wound. A sterile dressing is then placed. Patient was then placed in the supine position and transferred to the PACU in stable condition. Surgeon: Ariel Ya DO
--- NOTE | 2025-01-30 10:00 | ANE.PACU2 ---
Inpatient post-anesthesia follow up: Airway intact: Yes Vital signs: Temperature 98.2 F Pulse Rate 98 Respiratory Rate 18 Blood Pressure 121/87 Pulse Oximetry 100 Oxygen Delivery Me thod Room Air Oxygen Flow Rate 8 Fraction of Inspir ed Oxygen Hydration adequate: Yes Nausea and vomiting: No Pain level: 1 Mental status: Baseline
== END 2025-01-30 09:59 | disposition home or self-care (01) ==
PROVIDERS: Anesthesiology; PCP Family Medicine; Visit Provider Orthopaedic Surgery
PROC: (CPT 63005; principal; 2025-01-30 07:00)
DX: M48.062 Spinal stenosis, lumbar region with neurogenic claudication (principal); F41.9 Anxiety disorder, unspecified; Z87.891 Personal history of nicotine dependence
CPT/HCPCS: 63047; 72100; 76000; 81025; J0131; J1100; J1171; J1885; J2250; J2371; J2405; J2704; J3010; J3475; J3490; J7030; J9999

== ENCOUNTER 2025-04-07 10:37 | Emergency (ER) | payer MEDICAID, SELFPAY ==
--- OUTSIDE RECORDS SUMMARY | 2025-04-07 10:40 | XMS_ITS | Encounter Summary ---
Author Organization [facility] Address [address] [place] [address] Care Team Providers Care Bench Repair Technician Name Role Phone Unavailable Primary Care Provider Unavailabl e Encounter Details Date Type Department Care Team (Latest Contact Info) Description 04/07/2000 Outpatient Historical [facility] Manuel Johnson MD [address] [place] [address] Abdominal pain, unspecified site (Primary Dx) Social History Tobacco Use Types Packs/Day Years Used Date Smoking Tobacco: Never Assessed Comments Unknown Sex and Gender Information Value Date Recorded Sex Assigned at Not on file Legal Sex 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
--- OUTSIDE RECORDS SUMMARY | 2025-04-07 10:40 | XMS_ITS | Clinical Summary ---
Author Organization [employer] Address [address] 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
--- OUTSIDE RECORDS SUMMARY | 2025-04-07 10:40 | XMS_ITS | Encounter Summary ---
Author Organization [facility] Address [address] [place] [address] Care Team Providers Care Admissions Assistant Name Role Phone Unavailable Primary Care Provider Unavailabl e Encounter Details Date Type Department Care Team (Latest Contact Info) Description 12/15/2000 Outpatient Historical HIS [facility] Manuel Johnson MD [address] [place] [address] Dysuria (Primary Dx); Irregular menstruation; Herpes simplex without mention of complication Social History Tobacco Use Types Packs/Day Years Used Date Smoking Tobacco: Never Assessed Comments Unknown Sex and Gender Information Value Date Recorded Sex Assigned at Not on file Legal Sex Female 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
--- OUTSIDE RECORDS SUMMARY | 2025-04-07 10:40 | XMS_ITS | Encounter Summary ---
Author Organization [facility] Address [address] [place] [address] Care Team Providers Care Supervisor Die Casting Name Role Phone Unavailable Primary Care Provider Unavailabl e Encounter Details Date Type Department Care Team (Latest Contact Info) Description 07/01/2000 Outpatient Historical HIS [facility] Manuel Johnson MD [address] [place] [address] Herpes simplex without mention of complication (Primary Dx); Depressive disorder, not elsewhere classified Social History Tobacco Use Types Packs/Day Years Used Date Smoking Tobacco: Never Assessed Comments Unknown Sex and Gender Information Value Date Recorded Sex Assigned at Not on file 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
--- OUTSIDE RECORDS SUMMARY | 2025-04-07 10:40 | XMS_ITS | Encounter Summary ---
Author Organization [employer] [facility] Address [address] [place] [address] Care Team Providers Care Bead Wire Taper Name Role Phone Unavailable Primary Care Provider Unavailabl e Encounter Details Date Type Department Care Team (Latest Contact Info) Description 06/12/1999 Outpatient Historical HIS [facility] Manuel Johnson MD [address] [place] [address] Irritable bowel syndrome (Primary Dx) Social History Tobacco Use Types Packs/Day Years Used Date Smoking Tobacco: Never Assessed Comments Unknown Sex and Gender Information Value Date Recorded Sex Assigned at Not on file Legal Sex Female 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
--- OUTSIDE RECORDS SUMMARY | 2025-04-07 10:40 | XMS_ITS | Encounter Summary ---
Author Organization [employer] [facility] Address [address] [place] [address] Care Team Providers Care Boner Meat Name Role Phone Unavailable Primary Care Provider Unavailabl e Encounter Details Date Type Department Care Team (Latest Contact Info) Description 11/10/2001 Outpatient Historical HIS [facility] Manuel Johnson MD [address] [place] [address] ACNE NEC (Primary Dx) Social History Tobacco Use Types Packs/Day Years Used Date Smoking Tobacco: Never Assessed Comments Unknown Sex and Gender Information Value Date Recorded Sex Assigned at Not on file Legal Sex Female 3:57 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
--- OUTSIDE RECORDS SUMMARY | 2025-04-07 10:41 | XMS_ITS | Encounter Summary ---
Author Organization [facility] Address [address] [place] [address] Care Team Providers Care Assistant Buyer Name Role Phone Unavailable Primary Care Provider Unavailabl e Encounter Details Date Type Department Care Team (Latest Contact Info) Description 10/31/2000 Outpatient Historical HIS [facility] Manuel Johnson MD [address] [place] [address] Urinary tract infection, site not specified (Primary Dx); Other malaise and fatigue Social History Tobacco Use Types Packs/Day Years Used Date Smoking Tobacco: Never Assessed Comments Unknown Sex and Gender Information Value Date Recorded Sex Assigned at Not on file Legal Sex Female 3:57 AM BEN DAY ARTIST Gender Identity Not on file Sexual Orientation Not on file documented as of this encounter Plan of Treatment Not on file documented as of this encounter Visit Diagnoses Diagnosis Urinary tract infection, site not specified- Primary Other malaise and fatigue documented in this encounter
[2025-04-07 10:44] VITALS: BP 126/74; PULSE 86; RESP 16; TEMP 37.3; O2SAT 99; BMI 28.6
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
[2025-04-07 11:25] VITALS: BP 126/74
[2025-04-07] MEDS: orphenadrine 30 mg/mL Inj 2 mL 60 MG IM (11:34)
[2025-04-07] MEDS: HYDROcodone-acetaminophen 5-325 mg Tablet 1 TAB PO (11:34)
[2025-04-07 11:38] VITALS: BP 126/74; O2SAT 100
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
[2025-04-07 12:33] VITALS: BP 114/82; O2SAT 100
[2025-04-07 12:52] VITALS: BP 114/82; PULSE 75; RESP 18; O2SAT 100
== END 2025-04-07 12:54 | disposition home or self-care (01) ==
PROVIDERS: Emergency Provider Physician Assistant; PCP Family Medicine
DX: M54.2 Cervicalgia (principal)
CPT/HCPCS: 72040; 72072; 96372; 99284; J1885; J2360; J9999

== ENCOUNTER 2025-04-16 19:29 | Emergency (ER) | payer MEDICAID, SELFPAY ==
--- OUTSIDE RECORDS SUMMARY | 2025-04-16 19:38 | XMS_ITS | Encounter Summary ---
Author Organization [facility] Address [address] [place] [address] Care Team Providers Care Reviewer Sales Name Role Phone Unavailable Primary Care Provider Unavailabl e Encounter Details Date Type Department Care Team (Latest Contact Info) Description 04/07/2000 Outpatient Historical [facility] Manuel Johnson MD [address] [place] [address] Abdominal pain, unspecified site (Primary Dx) Social History Tobacco Use Types Packs/Day Years Used Date Smoking Tobacco: Never Assessed Comments Unknown Sex and Gender Information Value Date Recorded Sex Assigned at Not on file 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
--- OUTSIDE RECORDS SUMMARY | 2025-04-16 19:38 | XMS_ITS | Encounter Summary ---
Author Organization [employer] [facility] Address [address] [place] [address] Care Team Providers Care Class B Driver Name Role Phone Unavailable Primary Care Provider Unavailabl e Encounter Details Date Type Department Care Team (Latest Contact Info) Description 06/12/1999 Outpatient Historical [facility] Manuel Johnson MD [address] [place] [address] Irritable bowel syndrome (Primary Dx) Social History Tobacco Use Types Packs/Day Years Used Date Smoking Tobacco: Never Assessed Comments Unknown Sex and Gender Information Value Date Recorded Sex Assigned at Not on file 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
--- OUTSIDE RECORDS SUMMARY | 2025-04-16 19:38 | XMS_ITS | Encounter Summary ---
Author Organization [facility] Address [address] [place] [address] Care Team Providers Care Substance Abuse Prevention Coordinator Name Role Phone Unavailable Primary Care Provider Unavailabl e Encounter Details Date Type Department Care Team (Latest Contact Info) Description 07/01/2000 Outpatient Historical [facility] Manuel Johnson MD [address] [place] [address] Herpes simplex without mention of complication (Primary Dx); Depressive disorder, not elsewhere classified Social History Tobacco Use Types Packs/Day Years Used Date Smoking Tobacco: Never Assessed Comments Unknown Sex and Gender Information Value Date Recorded Sex Assigned at Not on file 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
--- OUTSIDE RECORDS SUMMARY | 2025-04-16 19:38 | XMS_ITS | Encounter Summary ---
Author Organization [employer] [facility] Address [address] [place] [address] Care Team Providers Care Dealer Support Technician Name Role Phone Unavailable Primary Care Provider Unavailabl e Encounter Details Date Type Department Care Team (Latest Contact Info) Description 12/15/2000 Outpatient Historical [facility] Manuel Johnson MD [address] [place] [address] Dysuria (Primary Dx); Irregular menstruation; Herpes simplex without mention of complication Social History Tobacco Use Types Packs/Day Years Used Date Smoking Tobacco: Never Assessed Comments Unknown Sex and Gender Information Value Date Recorded Sex Assigned at Not on file 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
--- OUTSIDE RECORDS SUMMARY | 2025-04-16 19:38 | XMS_ITS | Clinical Summary ---
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
--- OUTSIDE RECORDS SUMMARY | 2025-04-16 19:38 | XMS_ITS | Encounter Summary ---
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
--- OUTSIDE RECORDS SUMMARY | 2025-04-16 19:38 | XMS_ITS | Encounter Summary ---
Author Organization [facility] Address [address] [place] [address] Care Team Providers Care Factory Superintendent Name Role Phone Unavailable Primary Care Provider Unavailabl e Encounter Details Date Type Department Care Team (Latest Contact Info) Description 10/31/2000 Outpatient Historical [facility] Manuel Johnson MD [address] [place] [address] Urinary tract infection, site not specified (Primary Dx); Other malaise and fatigue Social History Tobacco Use Types Packs/Day Years Used Date Smoking Tobacco: Never Assessed Comments Unknown Sex and Gender Information Value Date Recorded Sex Assigned at Not on file 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
[2025-04-16 20:00] VITALS: BP 111/85; PULSE 86; RESP 16; TEMP 37.3; O2SAT 100; BMI 24.7
--- NOTE | 2025-04-16 20:16 | USR_ITS ---
PROCEDURE INFORMATION: Exam: US Duplex Lower Extremity Veins, Bilateral Exam date and time: 04/16/2025 8:58 PM Age: 39 years old Clinical indication: Swelling (edema) of limb; Lower extremity, bilateral TECHNIQUE: Imaging protocol: Real-time duplex ultrasound of the bilateral extremities with 2-D dockery scale, color Doppler flow and spectral waveform analysis including responses to compression and other maneuvers (when performed) with image documentation. Complete exam focused on the lower extremity veins. COMPARISON: US renal BI* [id number] 12/01/2020 6:08 PM FINDINGS: Right deep veins: Unremarkable. The common femoral, femoral, proximal profunda femoral and popliteal veins are patent without thrombus. Normal Doppler waveforms. Normal compressibility and/or augmentation response. Left deep veins: Unremarkable. The common femoral, femoral, proximal profunda femoral and popliteal veins are patent without thrombus. Normal Doppler waveforms. Normal compressibility and/or augmentation response. Superficial veins: Greater saphenous veins at the saphenofemoral junctions are patent bilaterally without thrombus. Soft tissues: Unremarkable. US/[place] [id number] IMPRESSION: No evidence of deep vein thrombosis.
--- NOTE | 2025-04-16 20:30 | ED_ITS ---
HPI - Extremity Problem 2 General: Chief complaint: Extremity Problem,Nontraumatic Stated complaint: Swollen from thighs down Time Seen by Provider: 04/16/25 19:31 Source: patient Mode of arrival: ambulatory Limitations: no limitations History of Present Illness: 39-year-old female states she had had ba ck surgery in January she states that since then she has been having some swelling to her legs. States originally started on the left leg now she has some swelling down both legs. She denies any pain denies any shortness of breath. She denies any fevers or rash. States it seems to improve with rest or when she elevates her legs. Associated symptoms: Deny chest pain Related Data Previous Rx's ?Medication ?Instructions ?Recorded hydrocodone 5 mg-acetaminophen 325 1 - 2 tab PO .Q4-6H #40 tabs 01/30/25 mg tablet amitriptyline 25 mg tablet 25 mg PO BEDTIME #90 tabs 0 03/20/25 bupropion HCl 300 mg 24 hr tablet, 300 mg PO DAILY #90 tabs 03/20/25 extended release citalopram 40 mg tablet 40 mg PO DAILY #90 tabs 02/23 02/15 dextroamphetamine-amphetamine 10 10 mg PO .qpm 30 days #30 tabs 03/20/25 mg tablet dextroamphetamine-amphetamine ER 30 mg PO QAM 30 days #30 caps 03/20/25 30 mg 24hr capsule,extend release (Adderall XR) cyclobenzaprine 5 mg tablet 5 mg PO Q8H #10 tabs 04/07 Allergies Allergy/AdvReac Type Severity Reaction Status Date / Time Penicillins Allergy ALGY-Swell Verified 04/16/25 20:05 Lip/Tongue/Throat Sulfa (Sulfonamide Allergy ALGY-Anaphy Verified 04/16/25 20:05 Antibiotics) laxis tetracycline Allergy Unknown Verified 04/16/25 20:05 Review of Systems 2 Card: Denies: chest pain Resp: Denies: dyspnea Musc: Reports: extremity swelling; Denies: back pain PFSH ED 2 PFSH: Medical History IBD (inflammatory bowel disease) IBS (irritable bowel syndrome) No pertinent past medical history neghx: htn,dm,thyroid,dvt/pe PCP: 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 Had colposcopy during with biopsy which showed GRIFFIN 2. Post pap performed on 09/25/14 showed low-grade BECKIE, cannot rule out high grade lesion. Colposcopy with biopsy performed on 11/06/14 and showed GRIFFIN 3. 11/26/2014: LEEP performed in OR. Final pathology: GRIFFIN 2 with extension to endocervical margins. 06/02/2015: Pap smear was normal.---->Plan pap at time of annual in approximately 6 months. Impression: - Patient was supposed to return in 6 months for a repeat pap following her last Pap smear which was 06/02/2015--she failed to follow-up due to loss of insurance. She needs a Pap smear and I have along the recommended that she do this at the [facility] Department since she does not have health insurance. If she declines to do so we may collect this here at her next follow-up appointment. Recorded 07/03/2019 01:06 PM by Radha Hernandez APN,DESTINEE, Annotation/Addendum. ADHD (attention deficit hyperactivity disorder) delivery delivered COVID-19 Intervertebral disc protrusion Anxiety Suspected 2019 novel coronavirus infection Surgical History History of ankle surgery History of hernia repair History of appendectomy Family History Grandmother Cancer colon Father Cancer skin Other Bleeding disorder Clotting disorder Diabetes Heart disease Hypercholesteremia Hypertension Lung disease Psychiatric illness Denies family history of Ovarian cancer CAD (coronary artery disease) Dementia Chronic kidney disease (CKD) Breast cancer Anesthesia complication Uterine cancer Thyroid disease Stroke Social History Smoking and tobacco/nicotine status: never used tobacco/nicotine Quit status (tobacco/nicotine): has tried quititng Alcohol intake: current Alcohol intake frequency: few times a week Substance/Drug Use: never Lives independently: Yes Marital status: Single Number of children: 2 Current occupational status: unemployed and other Details: has pending court issues Current gender identity: Female Special erasto needs: No Agree to transfusion: Yes Physical Exam 2 Const: COMMON NORMALS: no acute distress, patient oriented x3 and healthy appearing HENMT: COMMON NORMALS: normocephalic and atraumatic HEAD & SCALP: n ormocephalic and atraumatic Eye: COMMON NORMALS: conjunctivae normal CONJUNCTIVA: Yes conjunctivae normal Neck/C-Spine: COMMON NORMALS: full ROM and supple Chest: COMMONS NORMALS: normal inspection of the chest Resp: COMMON NORMALS: normal respiratory effort, No retractions, No use of accessory muscles and clear to auscultation bilaterally AUSCULTATION: clear to auscultation bilaterally Cardio: COMMON NORMALS: regular rate, regular rhythm and No murmurs present (Cardio) RATE: regular rate RHYTHM: regular rhythm Extremity: COMMON NORMALS: full ROM NARRATIVE EXTREMITY EXAM: 1+ edema to bilateral lower extremities distal pulses sensation intact Neuro: COMMON NORMALS: patient oriented x3, moves all extremities and no focal motor deficits Psych: COMMON NORMALS: mental status grossly normal, Normal thought process present and cooperative THOUGHT PROCESS: Normal thought process present Skin: COMMON NORMALS: no rashes or lesions noted and no wounds GENERAL SKIN EXAM: no rashes or lesions noted Course 2 Vital Signs: Vital signs: Vital Signs Temperature 99.1 F 04/16/25 20:00 Pulse Rate 86 04/16/25 20:00 Respiratory Rate 16 04/16/25 20:00 Blood Pressure 111/85 04/16/25 20:00 Pulse Oximetry 100 04/16/25 20:00 Oxygen Delivery Me thod Room Air 04/16/25 20:00 MDM - Extremity (Nontraumatic) Medical Decision Making Patient presents with lower extremity edema likely dependent edema ultrasound showed no DVT blood work here was all normal no signs of congestive heart failure she is to continue elevate legs did inform her she needs to do compression stockings I did go over her labs and imaging with her she understands agrees to plan she is following up with her surgeon this week Differential Diagnosis Likely cellulitis, superficial thrombophlebitis, lower extremity edema and deep vein thrombosis of lower extremity Medical Records I reviewed the patient's medical records. Lab Data I reviewed the patient's lab results. 04/16/25 20:26 04/16/25 20: Laboratory Results WBC 5.70 10^3/uL (3.29-11.43) 04/16/25 20: RBC 3.76 10^6/uL (3.85-5.65) L 04/16/25 20: Hgb 10.00 g/dL (11.27-16.99) L 04/16/25 20: Hct 31.4 % (36-47) L 04/16/25 20: MCV 83.5 fl (85-98) L 04/16/25 20: MCH 26.6 pg (27-33) L 04/16/25: MCHC 31.8 g/dL (30-55) 04/16/25: RDW 13.1 % (12.1-15.1) 04/16/25 20: Plt Count 247 10^3/cmm (157-399) 04/16/25: MPV 10.8 fL (7.4-10.4) H 04/16/25: Neut % (Auto) 60.4 % 04/16/25: Lymph % (Auto) 27.5 % 04/16/25: [place] % (Auto) 7.9 % 04/16/25: Eos % (Auto) 3.3 % 04/16/25: Baso % (Auto) 0.7 % 04/16/25: Neut # (Auto) 3.44 10^3/uL (1.8-7.7) 04/16/25: Lymph # (Auto) 1.6 10^3/uL (0.8-4.8) 04/16/25: [place] # (Auto) 0.5 10^3/uL (0.2-0.9) 04/16/25: Eos # (Auto) 0.2 10^3/uL (0.0-0.8) 04/16/25: Baso # (Auto) 0.0 10^3/uL (0.0-0.1) 04/16/25: Nucleated RBC % (auto) 0 % 04/16/25: Nucleated RBCs # 0.0 /100WBC 04/16/25 20: Sodium 140 mmol/L (136-145) 04/16/25 20: Potassium 3.6 mmol/L (3.5-5.1) 04/16/25: Chloride 104 mmol/L (98-107) 04/16/25 20:26 Carbon Dioxide 24 mmol/L (22-29) 04/16/25 20:26 Anion Gap 15.6 (5-19) 04/16/25 20: BUN 13 mg/dL (6-20) 04/16/25 20:26 Creatinine 0.5 mg/dL (0.5-0.9) 04/16/25 20:26 GFR Calculation 137.4 mL/min (90-130) H 04/16/25 20: Glucose 89 mg/dL (65-115) 04/16/25 20:26 Calculated Osmolality 290 mOsm/kg (285-295) 04/16/25 20: Calcium 8.9 mg/dL (8.5-10.5) 04/16/25 20: Total Bilirubin 0.2 mg/dL (0.15-1.2) 04/16/25 20:26 AST 17 U/L (0-32) 04/16/25 20: ALT 20 U/L (0-33) 04/16/25 20: Alkaline Phosphatase 57 U/L (35-105) 04/16/25 20:26 NT-Pro-B Natriuret Pep 43 pg/mL (0-125) 04/16/25 20:26 Total Protein 6.8 g/dL (6.6-8.7) 04/16/25 20:26 Albumin 4.0 g/dL (3.5-5.2) 04/16/25 20:26 Globulin 2.8 g/dL (1.3-4.6) 04/16/25 20:26 All radiology interpretation(s) finalized by discharge Discharge Plan Discharge Patient Disposition: Home Clinical Impression: Bilateral edema of lower extremity Condition: Stable Prescriptions: No Action amitriptyline 25 mg tablet 25 mg PO BEDTIME Qty: 90 1RF dextroamphetamine-amphetamine 10 mg tablet 10 mg PO .qpm 30 Days Qty: 30 0RF Rx Instructions: take at 3pm dextroamphetamine-amphetamine [Adderall XR] 30 mg capsule,extended release 24hr 30 mg PO QAM 30 Days Qty: 30 0RF citalopram 40 mg tablet 40 mg PO DAILY Qty: 90 1RF bupropion HCl 300 mg tablet extended release 24 hr 300 mg PO DAILY Qty: 90 1RF Rx Instructions: TAKE 1 TABLET BY MOUTH EVERY MORNING, hydrocodone-acetaminophen 5-325 mg tablet 1 - 2 tab PO .Q4-6H Qty: 40 0RF cyclobenzaprine 5 mg tablet 5 mg PO Q8H Qty: 10 0RF Discharge Orders: Discharge ED (Routine); Ordered 04/16/25 Ordered By: Johann Post Referrals: Aries San MD [Primary Care Provider, [facility]] Discharge Diet: Advance as tolerated Discharge Activity: Resume usual activity Patient Instructions: Leg Edema (ED) Print Language: Cymraes Coding Level of Care Code ED Transportation Superintendent for Pranav Turcios
[2025-04-16 20:46] LABS: Hematocrit 31.4 % (36-47); Hemoglobin 10.00 g/dL (11.27-16.99); Mean Corpuscular HGB Conc 31.8 g/dL (30-55); Mean Corpuscular Hemoglobin 26.6 pg (27-33); Mean Corpuscular Volume 83.5 fl (85-98); Nucleated Red Blood Cells % 0 %; Platelet Count 247 10^3/cmm (157-399); Red Blood Count 3.76 10^6/uL (3.85-5.65); White Blood Count 5.70 10^3/uL (3.29-11.43)
[2025-04-16 20:59] LABS: Alanine Aminotransferase 20 U/L (0-33); Albumin Level 4.0 g/dL (3.5-5.2); Alkaline Phosphatase 57 U/L (35-105); Anion Gap 15.6 (5-19); Aspartate Amino Transferase 17 U/L (0-32); Blood Urea Nitrogen 13 mg/dL (6-20); Calcium 8.9 mg/dL (8.5-10.5); Carbon Dioxide 24 mmol/L (22-29); Chloride 104 mmol/L (98-107); Creatinine Clr Calc Pharmacy 135.5505; Globulin 2.8 g/dL (1.3-4.6); Glucose 89 mg/dL (65-115); NT Pro B Type Natriuretic Pept 43 pg/mL (0-125); Osmolality Calculated 290 mOsm/kg (285-295); Potassium 3.6 mmol/L (3.5-5.1); Sodium 140 mmol/L (136-145); Total Protein 6.8 g/dL (6.6-8.7)
[2025-04-16 21:44] VITALS: BP 110/74; PULSE 74; RESP 16; O2SAT 100
== END 2025-04-16 21:43 | disposition home or self-care (01) ==
PROVIDERS: Emergency Provider Emergency Medicine; PCP Family Medicine
DX: R60.0 Localized edema (principal)
CPT/HCPCS: 36415; 80053; 83880; 85025; 93970; 99284

== ENCOUNTER → 2025-05-09 10:52 | Outpatient (BNVA) | payer MEDICAID, SELFPAY | PROVIDERS: PCP Family Medicine; Visit Provider Family Medicine | DX: R63.5 Abnormal weight gain (principal); Z86.39 Personal history of other endocrine, nutritional and metabolic disease | CPT/HCPCS: 80053; 82728; 83036; 83550; 84439; 84443; 85025; 86376 ==

== ENCOUNTER 2025-06-25 12:49 | Outpatient (CLI) | payer MEDICAID, SELFPAY ==
--- NOTE | 2025-06-25 13:00 | MR_ITS ---
WS: [id number] MRI LUMBAR SPINE NONCONTRAST HISTORY: lumber pain, prior surgery 01/30/2025 lumbar spine. COMPARISON: 10/11/2024 TECHNIQUE: Sagittal and axial multisequence imaging is submitted. Mild RIGHT curvature thoracic spine. Mild straightening of the normal cervical lordosis. C6-7 disc protrusion contacts the ventral cervical cord. This disc protrusion appears more pronounced compared to 10/11/2024 MRI. Normal lumbar alignment with no compression fractures or marrow edema. Mild disc space narrowing and desiccation at L4-5. There is a very small amount of marrow edema now present within the L4 and L5 LEFT pedicles and facets. Conus terminates normally at L1-2 disc level. L1-L2: Mild facet arthritis. No stenosis. L2-L3: Very mild annular disc bulging and facet arthritis. Mild LEFT foraminal narrowing. L3-L4: Mild annular disc bulging with ligamentum flavum and facet arthritis. Very mild encroachment upon the subarticular recesses. LEFT foraminal disc protrusion is reidentified. This disc protrusion is contacting the exiting LEFT L3 nerve root. Similar to the prior study. L4-L5: Diffuse disc bulging. Central disc protrusion with annular fissure is reidentified. There is disc contact on the traversing L5 nerve roots. Interval LEFT hemilaminectomy defect with LEFT facetectomy. Moderate LEFT foraminal stenosis and impingement upon the exiting LEFT L4 nerve root. Postoperative changes are also noted. Mild RIGHT foraminal stenosis. L5-S1: Mild disc bulging. Very small central disc protrusion. Mild disc contact on the LEFT S1 nerve root. Paravertebral soft tissues are negative. MR/MR lumbar spine wo con* [id number] IMPRESSION: 1. Status post LEFT hemilaminectomy defect at L4-5 with facetectomy since 10/11. 2. Small LEFT foraminal disc protrusion at L3-4 contacting the exiting LEFT L3 nerve root. Similar to the prior exam. 3. Moderate LEFT foraminal stenosis impinging on the exiting LEFT L4 nerve dina t at L4-5. Similar findings noted on the prior study. 4. Small central disc protrusion at L5-S1 with minimal contact of the LEFT S1 nerve root. 5. Mild LEFT foraminal stenosis at L2-3.
== END 2025-06-25 12:50 | disposition home or self-care (01) ==
LOC: RAD 12:50
PROVIDERS: PCP Family Medicine; Visit Provider Orthopaedic Surgery
DX: Z98.890 Other specified postprocedural states (principal); M47.816 Spondylosis without myelopathy or radiculopathy, lumbar region; M48.061 Spinal stenosis, lumbar region without neurogenic claudication; M51.369 Other intervertebral disc degeneration, lumbar region without mention of lumbar back pain or lower extremity pain; M51.26 Other intervertebral disc displacement, lumbar region; M47.897 Other spondylosis, lumbosacral region; M51.27 Other intervertebral disc displacement, lumbosacral region
CPT/HCPCS: 72148

== ENCOUNTER → 2025-07-02 09:25 | Outpatient (BNVA) | payer MEDICAID, SELFPAY | PROVIDERS: PCP Family Medicine; Visit Provider Orthopaedic Surgery | DX: Z01.818 Encounter for other preprocedural examination (principal) | CPT/HCPCS: 36415; 80053; 81001; 85025 ==

== ENCOUNTER 2025-07-22 15:35 | Observation (INO) | payer MEDICAID, SELFPAY ==
[2025-07-22] VITALS (20 sets, daily range): BP systolic 97–116; BP diastolic 40–73; PULSE 77–97; RESP 12–19; TEMP 36.4–37.2; O2SAT 93–100; BMI 27.8
--- NOTE | 2025-07-22 08:21 | W.PM.OPSUD ---
Surgery/Procedure H&P Update DATE OF PROCEDURE: July 22, 2025 DATE H&P PERFORMED: 07/02/25 H&P UPDATE INFORMATION: I have reviewed H&P completed within last 30 days, I have examined patient prior to procedure and No changes to prior documentation PREOP DIAGNOSIS: Lumbar stenosis with neurogenic claudication PLANNED PROCEDURE: Operation Date: 07/22/25 10:45 Proposed Procedures p Posterior Lumbar Interbody Fusion PLIF(Not Applicable) - Ariel Ya DO
[2025-07-22 08:47] LABS: OR HCG Qualitative Urine Negative (Negative)
[2025-07-22] MEDS: tobramycin 40 mg/mL SDV 2mL 160 MG XX (09:42)
[2025-07-22] MEDS: heparin, porcine 1,000 unit/mL INJ 10 mL 10000 UNIT IRRIGATION (09:42)
[2025-07-22] MEDS: lidocaine-epi 1% 20 mL INJ INJECTION (09:42)
--- NOTE | 2025-07-22 11:19 | XR_ITS ---
WS: [id number] Lumbar spine, C-arm fluoroscopy views, 07/22/2025 Clinical Data: OR PICS Comparison: Lumbar spine, 10/02/2024 Findings: Dr. Ya performed a posterior lumbar fusion. XR/XR lumbar spine 2-3V* [id number] Impression: Posterior lumbar fusion.
--- NOTE | 2025-07-22 11:30 | PM.OP ---
Operative Report Date of procedure: July 22, 2025 Pre-op diagnosis: Lumbar stenosis with neurogenic claudication Post-op diagnosis: same Procedure done: 1. L4/L5 Interbody fusion with posterolateral fusion 2. Instrumentation L4/L5 3. Cage at L4/L5 4. L4/L5 laminectomy with facetectomy 5. use of autograft from same incision 6. allograft 7. Bone marrow aspirate from right iliac crest 8. Use of computer navigation stereotactic for the spine Surgeon: Ariel Ya DO Estimated blood loss (mL): 300 Procedure: 1. L4/L5 Interbody fusion with posterolateral fusion 2. Instrumentation L4/L5 3. Cage at L4/L5 4. L4/L5 laminectomy with facetectomy 5. use of autograft from same incision 6. allograft 7. Bone marrow aspirate from right iliac crest 8. Use of computer navigation stereotactic for the spine Patient is brought to the operative suite. After undergoing anesthesia, the patient had neuro monitoring attached. Patient was then placed in the prone position on the Vikas table. All areas of impingement were well-padded. Patient was then prepped and draped in the normal sterile fashion. Skin incision was then made over the L5/S1 space. Subperiosteal dissection was made out to the transverse processes of L5 and sacral ala bilaterally. Prior to placing the pedicle screws the [employer] bone marrow aspirate kit was used to aspirate bone marrow aspirate from right iliac crest. This was done by using the sharp probe to open up the bone. Aspiration was performed and then the blunt probe was then used to dissect down to through the bone tunnel. An aspirating well drawn back a millimeter approximately 20 cc of bone marrow aspirate was used. Admixed with the allograft and autograft bone that will be used. The fiducial was placed 2 pins were placed into the right iliac crest and easily removed at the end of the case. The fiducial was attached the C-arm was brought in the patient information from the C-arm was loaded into the computer for placement of the pedicle screws using computer navigation. The technique for placing the pedicle screws was to use a drill followed by the gearshift probe linked to computer navigation. Followed by the ball probe to feel the superior inferior medial lateral jackson of the pedicles. Then placement of the screws using computer navigation. Was done at each pedicle. Screws were placed at L4 bilaterally and L5 bilaterally. Next attention was brought to performing the laminectomy of L4. This was done using the high-speed bur Kerrisons and curettes. Once the lamina was removed and then attention was brought to performing a partial facetectomy on the contralateral side. This was done again using the high-speed bur curettes and Kerrisons. The ligamentum flavum was taken down bilaterally from L4 to L5. Attention was then brought to the facet on the ipsilateral side. The facet was taken down. The L5 nerve was decompressed as it passed around the L5 pedicle. The laminectomy was done for purposes of decompressing the nerve as well as placement of the cage. The L4 nerve was identified as it traversed through the L4/L5 foramen. The thecal sac was identified and retracted. The L5/S1 disc base was identified. Using a knife the disc base was opened. And then sequential alexis were placed. The first shaver was a 6 and the last shaver was a 9. Using a pituitary and down going curette the endplates were scraped and disc material was removed from the space. Once adequate decompression of the disc base was felt to be had. Osteoamp sponge was packed into the anterior aspect of the disc base. Then a size 10 cage from [employer] was placed after packing osteoamp into the cage. While placing the cage the thecal sac and S1 nerve was protected. C arm was used to ensure that the cages placed in the appropriate position. Attention was then brought to attaching the rods to the screws placed in the L4 bilaterally to L5 bilaterally. Caps were torqued into position. Locking the construct in place. Wound was copiously irrigated and then attention was brought to decorticating the facets and transverse processes laterally. Bone that was taken down from the lamina was used along with osteoamp fibers and sponges were packed into the lateral gutters along the facet joints. This was done bilaterally. Wound was then closed in a layered fashion starting with the thoracolumbar fascia. 0-vicryl was used the sub cutaneous tissue was closed with 2-0 vicryl and skin with 4-0 monocryl. Glue was then used to seal the skin and a steril dressing was applied. Patient was then placed in the supine position. The endotracheal tube was removed and patient was transferred to the PACU in stable condition.
[2025-07-22] MEDS: fentaNYL 50 mcg/mL INJ 2mL IVP (12:04)
[2025-07-22] MEDS: HYDROcodone-acetaminophen 5-325 mg Tablet PO ×3 (12:42→21:08)
[2025-07-23] VITALS: BP 105/62; PULSE 83; RESP 16; TEMP 37.1; O2SAT 96
[2025-07-23] MEDS: HYDROcodone-acetaminophen 5-325 mg Tablet PO ×2 (01:17→08:18)
[2025-07-23] MEDS: CITALOPRAM 40 MG TABLET PO (04:24)
[2025-07-23 06:10] VITALS: BP 109/71; PULSE 81; RESP 16; TEMP 36.6; O2SAT 97
[2025-07-23 07:32] VITALS: BP 108/68; PULSE 72; RESP 16; TEMP 36.7; O2SAT 96
[2025-07-23] MEDS: ferrous sulfate EC 325 mg Tablet PO (08:18)
--- NOTE | 2025-07-23 09:57 | PC.CHAP ---
Pastoral Care Encounter/Spiritual Assessment Type of Contact [] Declined film replacement orderer visit [] Patient/Family/Request visit [] Outpatient visit [] Follow-up visit [] Physician referral [] Code/Alert [x] Routine visit [] Staff referral [] Actively dying [] Patient sleeping [] Family support [] [] Out of room [] Palliative care [] [] Receiving care in room [] Pre-surgical visit [] Trauma [] Long length of stay [] ICU visit [] Other: Relational/Emotional Strength [x] Patient feels connected with others/family/visitors/staff [] Distress [] Loneliness/isolation [] Abandonment Spirituality of Patient [x] Person of Rosalba [] Attends Congregational of their Ros[place] [x] Believes in Prayer [] Reads Bible or Jain materials [] There are Spiritual issues to be addressed Loan Representative Interventions [x] Prayer [x] Active listening [] Non-anxious presence [x] Spiritual/emotional support [] Crisis/trauma care [] Spiritual counseling [] Bereavement support [] Provided bereavement packet [] Provided Bible/devotional materials [] Provided toy/stuffed animal, coloring book to patient or family member [] Provided Communion [] Anointing/[place] [] Salvation [x] Completed spiritual assessment [] Other: Impact on Illness or Injury [] Angry [] Fearful [] Anxious [] Often cries [] Exhaustion [] Unable to work [] Unable to attend religious [] Unable to walk/stand [] Unable to read [] Unable to drive [] Unable to eat/drink [] Unable to sleep [] Unable to be with family [] Patient intubated [] Other: Summary Time spent with patient 5 min
--- NOTE | 2025-07-23 10:12 | P.DS_ITS ---
Discharge Providers Date of Admission: 07/22/25 15:35 Date of Discharge: July 23, 2025 Attending Provider at Admission: Ariel Ya DO Attending Provider at Discharge: Ariel Ya DO Primary Care Provider: Aries San MD Reason for Visit Reason for Visit: M48.062 Physical Exam Narrative: Patient sitting up in chair pain controlled. Leg pain feels good. Urinary Catheter Management: Yanes: Cath Placed During This Visit: yes, but has since been removed by the nurse Reason for Continuing Indwelling Catheter: Perioperative Use in Selected Surgeries Urinary Catheter Date of Insertion: 07/22/25 Urinary Catheter Time of Insertion: 09:20 Date Urinary Catheter Removed: 07/23/25 Time Urinary Catheter Discontinued: 06:35 Discharge Data Studies Completed and Pending Completed Studies During Hospitalization Category Date Time Status XR lumbar spine 2-3V* [id number] Routine Exams 07/22/25 11:19 Completed Radiology Impressions Lumbar Spine X-Ray 07/22/25 11:19 Impression: Posterior lumbar fusion. Laboratory Results Urine HCG, Qual Negative (Negative) 07/22/25 07:54 Blood Type A Positive 07/22/25 08:23 Rho(D) Type Rh positive 07/22/25 08:23 Antibody Screen Negative 07/22/25 08:23 Vitals Last Vital Signs Temp 98.1 F 07/23/25 07:32 Pulse 72 07/23/25 07:32 Resp 16 07/23/25 07:32 BP 108/68 07/23/25 07:32 Pulse Ox 96 07/23/25 07:32 O2 Del Method Room Air 07/23/25 07:32 O2 Flow Rate 6 07/22/25 11:43 Discharge Plan Discharge Patient Disposition: Home Condition: Stable Prescriptions: New hydrocodone-acetaminophen 5-325 mg tablet 1 tab PO Q4H PRN (Reason: pain) 7 Days Qty: 42 0RF Continued amitriptyline 25 mg tablet 25 mg PO BEDTIME Qty: 90 1RF citalopram 40 mg tablet 40 mg PO DAILY Qty: 90 1RF bupropion HCl 300 mg tablet extended release 24 hr 300 mg PO DAILY Qty: 90 1RF Rx Instructions: TAKE 1 TABLET BY MOUTH EVERY MORNING, (NACHO) TESSY Vital See Rx Instructions .Route .MEDSUPPLY Qty: 1 0RF Rx Instructions: As directed ferrous sulfate [Feosol] 325 mg (65 mg iron) tablet 325 mg PO .q48 90 Days Qty: 45 1RF dextroamphetamine-amphetamine [Adderall XR] 30 mg capsule,extended release 24hr 30 mg PO QAM 30 Days Qty: 30 0RF dextroamphetamine-amphetamine 10 mg tablet 10 mg PO DAILY Rx Instructions: take at 3pm Discharge Order = DC NOW: Discharge Order (Routine); Ordered 07/23/25 Ordered By: Ariel Ya Referrals: Ariel Ya, [Physician, Orthopedics] Discharge Diet: Advance as tolerated Discharge Activity: Limit activity as instructed Patient Instructions: Acute Wound Care (DC), Opioid Safety, Post Anesthesia Care, Patient Portal & Piyush Instructions Activity Restrictions/Additional Instructions: Thank you for choosing [facility] for your care! The following is a list of instructions, from your provider, to follow upon your discharge to ensure you have the optimal recovery from your recent injury or surgery. Follow-up care is a chu part of your treatment and safety. Be sure to make and go to all appointments, and call your doctor if you are having problems. If you do not already have a follow-up appointment made, call Dr. Ya's office in the next 1-3 days to make follow up appointment for 1 weeks at [phone]. It is also a good idea to know your test results and keep a list of the medicines you take. Medications will be prescribed for you at your provider?s discretion. These medications are to be used as instructed;if they are taken more often that prescribed they will not be refilled early and in most cases will not be refilled at all. > When a refill is needed,you should contact our office 2-3 business days beforeyour prescription runs out. Medications will NOTbe refilled by try out person providers after hours! > Many pain medications contain Tylenol (Acetaminophen). Do not consume more than 4,000 mg of Tylenol per day in total with any combination of medications. > Pain medications can cause constipation. Please use an over the counter stool softener as directed, while taking pain medications. Consult your local pharmacist with questions or recommendations on stool softeners. If constipation persists, contact our office or your primary care provider. > While under our care,you are not to receive pain medications or other controlled substances from any other provider unless our office is notified and approves. Any attempts to do so will result in refusal to prescribe any further pain medications and possible dismissal from our practice. ? Keep dressing on for 1 week will change dressing in the clinic in 1 week. ? Walking is essential for the healing process after surgery. We would like you to slowly advance your walking. This should be done on relatively flat clear ground (inside or out) or can be done on a treadmill. Remember this goal does not have to happen all at once, slowly increase your distance and duration. This can be broken into more more than one walk per day as tolerated. Patients who walk as directed after surgery rarely require Physical Therapy. In the unlikely event this issue arises your provider will direct hospital staff to make the appropriate arrangements. ? No lifting over 5 pounds {a gallon of milk) or bending/twisting until further notice. Each of these activities places an unnecessary amount of stress onto the body and can impede the delicate healing process. > Instead of bending at the waist, keep your back straight and bend at the knees. > Instead of twisting your torso, keep your back straight and turn your entire body with your feet. ? You may sleep in any position which makes you comfortable.Many patients find comfort sleeping in a reclining chair. It is not abnormal to have difficulty sleeping for the first several weeks following your surgery. We recommend trying Benadryl or Tylenol PM as directed to help with your sleeping difficulties. Both medications are over the counter and available without prescription. ? NO SMOKING!!!Smoking dramatically increases the probability of developing postoperative wound infections. ? Common complaints after lumbar and/or thoracic spine surgery include, but are not limited to: numbness and/or tingling in the legs, pain around the incision and surrounding tissues, muscle spasms, or stiffness of the middle to low back. Contact our office if these symptoms persist or if an acute change occurs. ? No driving for the first 3-5 days, and not while taking narcotics until seen at your follow-up appointment and cleared.There are no restrictions for riding on short trips, however if you take a longer trip, arrangements should be made to make regular stops to get out of the vehicle and stretch . ? Swelling is an unfortunate event that will take place with any surgery and is the primary source of your postoperative discomfort. While walking and regular approved activities helps control inflammation, there are additional steps you can take to minimize swelling. > Place ice over the surgical site and surrounding tissue for twenty minutes, followed by applying a low/medium heat (heating pad) for an additional twenty minutes every 1-2 hours as needed for pain relief. > You may use of over the counter anti-inflammatory medications (Ibuprofen, Motrin, Aleve, Advil, etc) as directed on the package label. These types of medicines will significantly reduce the amount of discomfort you experience after surgery from swelling. It should be noted that if you have an allergy to any of these medications, or a history of ulcers or kidney disease you should consult your primary care provider prior to starting these medications. Discharge Attestations Time Spent in Discharge Care*: less than 30 min Quality Metrics Clinical Quality Measures [ No reported AMI, CVA or VTE this stay] Coding Level of Care Code Acute Code for Chg Tam
[2025-07-23 11:16] VITALS: BP 108/68; PULSE 72; RESP 16; TEMP 36.7; O2SAT 96
== END 2025-07-23 11:17 | disposition home or self-care (01) ==
LOC: MEDSURG 15:35
PROVIDERS: Anesthesiology; Admitting Provider Orthopaedic Surgery; PCP Family Medicine; Visit Provider Orthopaedic Surgery
PROC: (CPT 22612; principal; 2025-07-22 10:25)
DX: M48.062 Spinal stenosis, lumbar region with neurogenic claudication (principal); F41.9 Anxiety disorder, unspecified; Z80.0 Family history of malignant neoplasm of digestive organs; Z80.8 Family history of malignant neoplasm of other organs or systems; Z79.891 Long term (current) use of opiate analgesic
CPT/HCPCS: 22633; 22614; 63052; 20939; 22853; 20930; 22840; 36415; 51702; 72100; 76000; 81025; 86850; 86900; 97116; 97161; A4649; C1713; C1776; G0378; J0330; J1100; J1171; J1644; J1885; J2250; J2371; J2405; J2704; J3010; J3260; J3373; J3490; J7030; J7120; J9999